=== PATIENT | male | born 1960 | race Caucasian/White ===

== ENCOUNTER 2018-05-14 11:32 | Inpatient (IN) ==
--- NOTE | 2018-05-14 11:52 | ED ---
HPI General Chief Complaint: Trauma Alert Stated Complaint: Trauma Alert Time Seen by Provider: 05/14/18 11:49 Source: patient and EMS Mode of arrival: EMS Limitations: no limitations History of Present Illness HPI narrative: 57-year-old male with history of liver cirrhosis on the transplant list, brought in by ambulance as a trauma alert. Patient declined backboard, and arrives with cervical collar in place. The patient was in a tree stand hunting when he lost his footing and fell from a height of about 10 feet onto his right side. He complains of right wrist pain and right rib pain. He denies any other injuries. Denies head injury or LOC. No neck or back pain. No abdominal pain. His right wrist and right rib pain is 3 out of 10, constant, sharp, worse with movements and inspiration. Related Data Allergies Allergy/AdvReac Type Severity Reaction Status Date / Time No Allergy Information Allergy Unverified 05/14/18 11:33 Available Review of Systems ROS: all other systems reviewed are negative PMFSH Medical History Medical History Cirrhosis (Acute) Encephalopathy, hepatic (Acute) Foot drop (Acute) Hypertension (Acute) Social History Social History Substance History: No History of Abuse Second Hand Smoke Exposure: No Smoking Status: Former smoker How Often Do You Have a Drink Containing Alcohol: Never Recent Travel in [place] within the Last 8 Weeks: No Recent Out of Country Travel within the Last 8 Weeks: No Exam Narrative Exam Narrative: GENERAL: Well-developed, well-nourished, awake, alert, GCS 15, no apparent distress. SKIN: Focused skin assessment warm/dry. No lacerations or abrasions. HEAD: Atraumatic. Normocephalic. EYES: Pupils equal and round. No scleral icterus. No injection or drainage. ENT: Mucous membranes pink and moist. Tooth #9 is missing. As per the patient there was a cap that most of popped out during his fall. NECK: Trachea midline. No JVD. No midline cervical spine step-off or tenderness. Rigid cervical collar in place. This was replaced for a [place] collar in the trauma bay. CARDIOVASCULAR: Regular rate and rhythm. Distal pulses brisk and equal bilaterally. RESPIRATORY: No accessory muscle use. Clear to auscultation. Breath sounds equal bilaterally. GASTROINTESTINAL: Abdomen soft, non-tender, nondistended. MUSCULOSKELETAL: Obvious deformity to the right distal forearm/wrist. All compartments in the right upper extremity are supple, and the right upper extremity is neurovascularly intact. There are no open wounds or lacerations. NEUROLOGICAL: Awake and alert. No obvious cranial nerve deficits. Motor grossly within normal limits. Normal speech. PSYCHIATRIC: Appropriate mood and affect; insight and judgment normal. Course Initial Documented Vital Signs Pulse Oximetry 98 05/14/18 11:37 Last Documented Vital Signs Pulse Rate 66 05/14/18 12:31 Respiratory Rate 14 05/14/18 12:31 Blood Pressure 128/75 05/14/18 12:31 Pulse Oximetry 98 05/14/18 12:31 Critical Care Time Critical Care Time: Yes Total Critical Care Time: 35 Attestation: Aggregate critical care time was 35 minutes. Time to perform other separately billable procedures was not included in the critical care time. My time did not include minutes spent treating any other patients simultaneously or on activities that did not directly contribute to the patient's treatment. The services I provided to this patient were to treat and/or prevent clinically significant deterioration that could result in: , permanent disability, worsening clinical condition, loss of limb I provided critical care services requiring my management, as noted below: Chart data review, documentation time, medication orders and management, vital sign assessments/reviewing monitor data, ordering and reviewing lab tests, ordering and interpreting/reviewing x-rays and diagnostic studies, care of the patient and discussion of the patient with the admitting physicians. Quality Measure Queries Trauma Alert - Level Two Time Surgeon Called: 11:11 Medical Decision Making MDM Narrative Medical decision making narrative: The patient arrives as a level 2 trauma alert. Upon arrival to the emergency department the trauma team was at the bedside, and ATLS protocol was followed. Bedside FAST performed by me is negative for free fluid in the abdomen and pelvis. Chest x-ray shows no obvious pneumothorax or hemothorax or signs of trauma. Right forearm x-ray shows a comminuted distal radius fracture. Volar splint was applied prior to transporting the patient to CT scan. CT of the head, neck, entire spine, thorax, and abdomen/pelvis were performed. Main traumatic injury is right first rib fracture with subcutaneous air without pneumothorax with some pulmonary edema/contusion. There are no intra-abdominal traumatic injuries. No vertebral injuries. No intracranial traumatic injuries. The patient was made aware of all findings. His O2 saturation is 98% on room air. He is not in any respiratory distress. He has declined pain medication because he is afraid of how will interact with his liver. I discussed the case with orthopedic RAFFAELE Isaias who is covering with orthopedist Dr. Montague. They will see the patient in consultation. They would like the patient to remain n.p.o. until they evaluate him as he may taken to the OR later today for ORIF. Trauma surgeon Dr. Bansal was made aware of the patient prior to patient arrival, made aware that this would be read as a level 2 trauma. He was called after all imaging was resulted. He will admit the patient to his service. Medical Screen Exam Complete: Yes Emergency Medical Condition: Yes Lab Data Result diagrams: 05/14/18 11:36 Lab Results 05/14/18 05/14/18 05/14/18 Range/Units 11:36 11:36 11:36 WBC 17.6 H (4.0-11.0) th/mm3 RBC 4.48 L (4.50-5.90) mil/mm3 Hgb 15.6 (13.0-17.0) gm/dL POC Hgb (Calc) 16.0 (13.0-17.0) g/dL Hct 45.7 (39.0-51.0) % POC Hct 47.0 (39-51.0) % MCV 101.9 H (80.0-100.0) fL MCH 34.8 H (27.0-34.0) pg MCHC 34.1 (32.0-36.0) % RDW 13.7 (11.6-17.2) % Plt Count 220 (150-450) th/mm3 MPV 9.8 (7.0-11.0) fL Neut % (Auto) 63.5 (16.0-70.0) % Lymph % (Auto) 24.2 (9.0-44.0) % [place] % (Auto) 10.1 H (0.0-8.0) % Eos % (Auto) 1.0 (0.0-4.0) % Baso % (Auto) 1.2 (0.0-2.0) % Neut # (Auto) 11.2 H (1.8-7.7) th/mm3 Lymph # (Auto) 4.3 (1.0-4.8) th/mm3 [place] # (Auto) 1.8 H (0.0-0.9) th/mm3 Eos # (Auto) 0.2 (0.0-0.4) th/mm3 Baso # (Auto) 0.2 (0.0-0.2) th/mm3 WBC Differential . Differential Comment Auto diff final PT 11.1 (9.8-11.6) sec INR 1.1 Ratio APTT 26.0 (23.4-31.7) sec POC Sodium 141 (137-144) mmol/L POC Potassium 4.0 (3.6-5.0) mmol/L POC Chloride 100 L (102-111) mmol/L POC BUN 11 (5-21) mg/dL POC Creatinine 0.7 (0.6-1.3) mg/dL POC Glucose 113 H (68-110) mg/dL Direct Bilirubin (0.0-0.2) mg/dL AST (15-37) U/L ALT (12-78) U/L Albumin (3.4-5.0) g/dL Blood Type Blood Type Recheck Antibody Screen Antigen Identification MTS Gel Crossmatch Bld Prod Order Comment 05/14/18 05/14/18 Range/Units 11:36 11:36 WBC (4.0-11.0) th/mm3 RBC (4.50-5.90) mil/mm3 Hgb (13.0-17.0) gm/dL POC Hgb (Calc) (13.0-17.0) g/dL Hct (39.0-51.0) % POC Hct (39-51.0) % MCV (80.0-100.0) fL MCH (27.0-34.0) pg MCHC (32.0-36.0) % RDW (11.6-17.2) % Plt Count (150-450) th/mm3 MPV (7.0-11.0) fL Neut % (Auto) (16.0-70.0) % Lymph % (Auto) (9.0-44.0) % [place] % (Auto) (0.0-8.0) % Eos % (Auto) (0.0-4.0) % Baso % (Auto) (0.0-2.0) % Neut # (Auto) (1.8-7.7) th/mm3 Lymph # (Auto) (1.0-4.8) th/mm3 [place] # (Auto) (0.0-0.9) th/mm3 Eos # (Auto) (0.0-0.4) th/mm3 Baso # (Auto) (0.0-0.2) th/mm3 WBC Differential Differential Comment PT (9.8-11.6) sec INR Ratio APTT (23.4-31.7) sec POC Sodium (137-144) mmol/L POC Potassium (3.6-5.0) mmol/L POC Chloride (102-111) mmol/L POC BUN (5-21) mg/dL POC Creatinine (0.6-1.3) mg/dL POC Glucose (68-110) mg/dL Direct Bilirubin 0.3 H (0.0-0.2) mg/dL AST 48 H (15-37) U/L ALT 36 (12-78) U/L Albumin 3.5 (3.4-5.0) g/dL Blood Type O Negative Blood Type Recheck Required Antibody Screen Positive H Antigen Identification Cancelled MTS Gel Crossmatch See Detail Bld Prod Order Comment Imaging Data Radiologist's impression: Wrist X-Ray 05/14/18 00:00 CONCLUSION: Comminuted fracture of the distal radius. Abdomen/Pelvis CT 05/14/18 11:37 CONCLUSION: 1. No evidence of acute visceral injury. 2. Status post splenectomy. 3. Large oval low density fluid collection in the subcutaneous fat anterior to the left hip musculature which may represent a remote seroma. Chest CT 05/14/18 11:37 CONCLUSION: 1. Subtle nondisplaced fracture of the right lateral first rib with small amount of subcutaneous. There is no pneumothorax. 2. Mild patchy area of opacity in the right upper lobe which may represent a small area of lung contusion. Short-term follow-up CT would be recommended in 3 months to exclude a true underlying mass. 3. Cholelithiasis. Chest X-Ray 05/14/18 11:37 CONCLUSION: No acute cardiopulmonary disease. Cervical Spine CT 05/14/18 11:38 CONCLUSION: 1. Negative trauma CT Head CT 05/14/18 11:38 CONCLUSION: 1. Negative trauma head CT with no evidence of hemorrhage or fracture. 2. Mild streak and motion artifact. . Lumbar Spine CT 12/11/18 11:38 CONCLUSION: 1. Negative trauma CT with no acute fracture or malalignment. Thoracic Spine CT 05/14/18 11:38 CONCLUSION: 1. No acute fracture or malalignment in the thoracic spine. 2. Multiple subtle right rib fractures. 3. Small right effusion. Wrist X-Ray 05/14/18 11:48 CONCLUSION: Comminuted fracture of the distal radius again noted. Hand X-Ray 05/14/18 11:49 CONCLUSION: No additional fractures identified. Discharge Plan Discharge Disposition Patient Disposition: ED Admit(ED Internal Use Only) Discharge Condition Condition: Stable Discharge Order Discharge Orders: ED Use Only Admit Order (Routine); Ordered 05/14/18 Ordered By: Josh Anne Discharge Details Diagnosis: Fall from height of greater than 3 feet, Right rib fracture, Lung contusion, Closed fracture of distal end of right radius Physicians Team ED Provider: Josh Anne Status ED Status: With Doctor
--- NOTE | 2018-05-14 12:00 | XR ---
EXAM DATE: 05/14/2018 11:52 AM EST AGE/SEX: 89 years / Male INDICATIONS: Patient fell put of tree stand CLINICAL DATA: This is the patient's initial encounter. Patient reports that signs and symptoms have been present for 1 day and indicates a pain score of 6/10. MEDICAL/SURGICAL HISTORY: None. None. COMPARISON: No prior exams available for comparison. FINDINGS: A single AP view of the chest demonstrates the lungs to be symmetrically aerated without evidence of mass, infiltrate or effusion. The heart size is at the upper limits of normal with no pulmonary jatin a. Multiple overlying electrocardiogram leads are present. Osseous structures are intact. CONCLUSION: No acute cardiopulmonary disease. Electronically signed by: Norberto Boyer MD 05/14/2018 11:59 AM EST
[2018-05-14 12:01] LABS: Baso # (Auto) 0.2 th/mm3 (0.0-0.2); Baso % (Auto) 1.2 % (0.0-2.0); Eos # (Auto) 0.2 th/mm3 (0.0-0.4); Hematocrit 45.7 % (39.0-51.0); Hemoglobin 15.6 gm/dL (13.0-17.0); Lymph # (Auto) 4.3 th/mm3 (1.0-4.8); Lymph % (Auto) 24.2 % (9.0-44.0); Mean Corpuscular HGB Conc 34.1 % (32.0-36.0); Mean Corpuscular Hemoglobin 34.8 pg (27.0-34.0); Mean Corpuscular Volume 101.9 fL (80.0-100.0); Mean Platelet Volume 9.8 fL (7.0-11.0); Mono # (Auto) 1.8 th/mm3 (0.0-0.9); Mono % (Auto) 10.1 % (0.0-8.0); Neut # (Auto) 11.2 th/mm3 (1.8-7.7); Neut % (Auto) 63.5 % (16.0-70.0); Platelet Count 220 th/mm3 (150-450); Red Blood Count 4.48 mil/mm3 (4.50-5.90); Red Cell Distribution Width 13.7 % (11.6-17.2); White Blood Count 17.6 th/mm3 (4.0-11.0)
--- NOTE | 2018-05-14 12:05 | XR ---
EXAM DATE: 05/14/2018 11:54 AM EST AGE/SEX: 89 years / Male INDICATIONS: Pain and swelling in the wrist after the patient fell out of a tree stand CLINICAL DATA: This is the patient's initial encounter. Patient reports that signs and symptoms have been present for 1 day and indicates a pain score of 4/10. MEDICAL/SURGICAL HISTORY: None. None. COMPARISON: No prior exams available for comparison. FINDINGS: A single AP view of the wrist as obtained and demonstrate a mildly impacted comminuted fracture of th e distal radius with multiple fracture lines extending into the radiocarpal joint. The distal ulna ap pears intact. The carpus is intact as well. There is overlying soft tissue swelling. CONCLUSION: Comminuted fracture of the distal radius. Electronically signed by: Norberto Boyer MD 05/14/2018 12:04 PM EST
--- NOTE | 2018-05-14 12:10 | CT ---
EXAM DATE: 05/14/2018 12:06 PM EST AGE/SEX: 89 years / Male INDICATIONS: Head trauma after fall from a tree. Known wrist fracture. CLINICAL DATA: This is the patient's initial encounter. Patient reports that signs and symptoms have been present for 1 day and indicates a pain score of 7/10. MEDICAL/SURGICAL HISTORY: . Unable to obtain None. unable to obtain RADIATION DOSE: 62.91 CTDI (mGy) COMPARISON: No prior exams available for comparison. TECHNIQUE: CT of the head without contrast. Using automated exposure control and adjustment of the mA and/or kV according to patient size, radiation dose was kept as low as reasonably achievable to ob tain optimal diagnostic quality images. DICOM format image data is available electronically for revi ew and comparison. FINDINGS: There is mild streak and motion artifact. Cerebrum: The ventricles are normal for age. No evidence of midline shift, mass lesion, hemorrhage or acute infarction. No extraaxial fluid collections are seen. Posterior Fossa: The cerebellum and brainstem are intact. The 4th ventricle is midline. The cerebe llopontine angle is unremarkable. Extracranial: The visualized portion of the orbits is intact. Skull: The calvaria is intact. No evidence of skull fracture. CONCLUSION: 1. Negative trauma head CT with no evidence of hemorrhage or fracture. 2. Mild streak and motion artifact. . Electronically signed by: Norberto Boyer MD 05/14/2018 12:09 PM EST
[2018-05-14 12:11] LABS: INR 1.1 Ratio; Prothrombin Time 11.1 sec (9.8-11.6)
--- NOTE | 2018-05-14 12:25 | CT ---
EXAM DATE: 05/14/2018 12:21 PM EST AGE/SEX: 89 years / Male INDICATIONS: Neck pain after trauma. CLINICAL DATA: This is the patient's initial encounter. Patient reports that signs and symptoms have been present for 1 day and indicates a pain score of 7/10. MEDICAL/SURGICAL HISTORY: . Unable to obtain . Unable to obtain RADIATION DOSE: 23.45 CTDI (mGy) COMPARISON: No prior exams available for comparison. TECHNIQUE: Contiguous axial images were obtained using helical multirow detector technique. The vol umetric data was post-processed with multiplanar reconstruction in oblique axial, sagittal, and coron al planes. Using automated exposure control and adjustment of the mA and/or kV according to patient s ize, radiation dose was kept as low as reasonably achievable to obtain optimal diagnostic quality mayur ges. DICOM format image data is available electronically for review and comparison. FINDINGS: Vertebrae: Normal vertebral body height. Discs. Degenerative disc changes are present at the C5-6 level with disc space narrowing and hypertro phic change. Alignment: Normal. No subluxation. The axial images demonstrate that the vertebral bodies and posterior elements are intact with no evid ence of acute fracture. The prevertebral soft tissues are within normal limits. There is a disc osteo phyte complex at the C5-6 level with mass effect on the anterior thecal sac. CONCLUSION: 1. Negative trauma CT Electronically signed by: Norberto Boyer MD 05/14/2018 12:24 PM EST
--- NOTE | 2018-05-14 12:30 | CT ---
EXAM DATE: 05/14/2018 12:24 PM EST AGE/SEX: 89 years / Male INDICATIONS: TRAUMA ALERT. Fall from a tree. CLINICAL DATA: This is the patient's initial encounter. Patient reports that signs and symptoms have been present for 1 day and indicates a pain score of Nonresponsive. MEDICAL/SURGICAL HISTORY: Non-responsive. Non-responsive. ORAL CONTRAST: No oral contrast ingested. RADIATION DOSE: 23.83 CTDI (mGy) COMPARISON: No prior exams available for comparison. TECHNIQUE: Multiple contiguous axial images were obtained through the abdomen and pelvis following b olus infusion of 96 ml Omnipaque 350 (iohexol) nonionic water-soluble contrast as a single exam dos e. No oral contrast ingested. Using automated exposure control and adjustment of the mA and/or kV ac cording to patient size, radiation dose was kept as low as reasonably achievable to obtain optimal di agnostic quality images. DICOM format image data is available electronically for review and comparis on. FINDINGS: Lower Lungs: The visualized lower lungs are clear. Liver: The liver has a homogeneous density without space-occupying lesion. There is no dilation of th e biliary tree. There are 2 small high density gallstones layering dependently in the gallbladder wit h no wall thickening or inflammatory change. Spleen: Status post splenectomy with surgical clips and pili in the upper left abdomen and no spl enic tissue identified. Pancreas: Unremarkable without mass or calcification. Kidneys: Normal in size and shape. No evidence of mass or hydronephrosis. Adrenal Glands: Unremarkable. Aorta: The aorta and proximal iliac vessels are grossly unremarkable without aneurysmal dilation. Bowel/Mesentery: The bowel loops are grossly unremarkable. The cecum and sigmoid colon have a normal configuration. Abdominal Wall: Intact. Retroperitoneum: No evidence of adenopathy in the retrocrural, para-aortic, or deep pelvic regions. Bladder: Contours are smooth. Reproductive Organs: No abnormal masses or calcifications seen. Inguinal: The inguinal region is unremarkable without evidence of adenopathy. Bony Structures: Unremarkable. There is an oval low-density fluid collection in the subcutaneous fat anterior to the left hip musculature. This measures up to 8.9 x 4.7 cm and measures 22 [place] [address] its in density. CONCLUSION: 1. No evidence of acute visceral injury. 2. Status post splenectomy. 3. Large oval low density fluid collection in the subcutaneous fat anterior to the left hip musculat ure which may represent a remote seroma. Electronically signed by: Norberto Boyer MD 05/14/2018 12:29 PM EST
--- NOTE | 2018-05-14 12:35 | CT ---
EXAM DATE: 05/14/2018 12:27 PM EST AGE/SEX: 89 years / Male INDICATIONS: Chest pain after trauma. CLINICAL DATA: This is the patient's initial encounter. Patient reports that signs and symptoms have been present for 1 day and indicates a pain score of 7/10. MEDICAL/SURGICAL HISTORY: . Unable to obtain . Unable to stain RADIATION DOSE: 20.34 CTDI (mGy) COMPARISON: No prior exams available for comparison. TECHNIQUE: Multiple contiguous axial images were obtained through the chest during bolus infusion of 95 ml Omnipaque 350 (iohexol) nonionic water-soluble contrast as a cumulative dose for multiple exa ms. Images were obtained in suspended respiration using multiple row detector helical technique. U sing automated exposure control and adjustment of the mA and/or kV according to patient size, radiati on dose was kept as low as reasonably achievable to obtain optimal diagnostic quality images. DICOM format image data is available electronically for review and comparison. FINDINGS: Lungs: The lungs are symmetrically aerated. There is a small patchy opacity in the right upper lobe seen on axial images numbers [id number] and. This measures up to approximately 1.3 cm in greatest diameter. There is no pneumothorax.. Mediastinum: There is good visualization of the great vessels of the middle mediastinum. No evidenc e of mediastinal or hilar adenopathy/mass. Pleurae: No evidence of focal thickening or pleural effusion. Axillae: Unremarkable. Bony Structures: As a subtle nondisplaced fracture right lateral first rib with small amount of luciano cent subcutaneous. Miscellaneous: The examination was extended to include the upper abdomen, and both adrenal glands ar e normal in size and configuration. 2 tiny calcified gallstones are noted layering the gallbladder. CONCLUSION: 1. Subtle nondisplaced fracture of the right lateral first rib with small amount of subcutaneous. Th ere is no pneumothorax. 2. Mild patchy area of opacity in the right upper lobe which may represent a small area of lung con tusion. Short-term follow-up CT would be recommended in 3 months to exclude a true underlying mass. 3. Cholelithiasis. Electronically signed by: Norberto Boyer MD 05/14/2018 12:33 PM EST
--- NOTE | 2018-05-14 12:50 | CT ---
EXAM DATE: 05/14/2018 12:41 PM EST AGE/SEX: 89 years / Male INDICATIONS: TRAUMA ALERT. Fall from a tree. CLINICAL DATA: This is the patient's initial encounter. Patient reports that signs and symptoms have been present for 1 day and indicates a pain score of Nonresponsive. MEDICAL/SURGICAL HISTORY: Non-responsive. Non-responsive. RADIATION DOSE: 0 CTDI (mGy) ; Reconstructed from previous dataset, no dose [place] [facility] [place], 05/14/2018. . TECHNIQUE: Contiguous axial images were acquired with a multirow detector CT scanner after intraveno us administration of 96 ml Omnipaque 350 (iohexol) nonionic water-soluble contrast as a single exam dose. Multiplanar reconstructions in the sagittal and coronal plane were also performed. Using autom ated exposure control and adjustment of the mA and/or kV according to patient size, radiation dose wa s kept as low as reasonably achievable to obtain optimal diagnostic quality images. DICOM format mayur data is available electronically for review and comparison. FINDINGS: Study is degraded by mild motion and streak artifact. Vertebrae: Normal vertebral body height. Discs: Mild degenerative disc changes present at the L5-S1 level with disc space narrowing and hypert rophic changes. Alignment: Normal. No subluxation. Post Contrast: No abnormal areas of enhancement are seen in the cord, dural or paraspinal regions. The axial images demonstrate that the vertebral bodies and posterior elements are intact with no evid ence of fracture. The paravertebral soft tissues appear unremarkable. CONCLUSION: 1. Negative trauma CT with no acute fracture or malalignment. Electronically signed by: Norberto Boyer MD 05/14/2018 12:48 PM EST
--- NOTE | 2018-05-14 13:04 | CT ---
EXAM DATE: 05/14/2018 12:48 PM EST AGE/SEX: 89 years / Male INDICATIONS: TRAUMA ALERT. Fall from a tree. CLINICAL DATA: This is the patient's initial encounter. Patient reports that signs and symptoms have been present for 1 day and indicates a pain score of Nonresponsive. MEDICAL/SURGICAL HISTORY: Non-responsive. Non-responsive. RADIATION DOSE: 0 CTDI (mGy) ; Reconstructed from previous dataset, no dose COMPARISON: [facility] – [place], [place] CHEST W CONTRAST, 05/14/2018. . TECHNIQUE: Contiguous axial images were acquired using a multirow detector CT scanner after intraven ous administration of 96 ml Omnipaque 350 (iohexol) nonionic water-soluble contrast as a single exam dose. Multiplanar reconstruction in the sagittal and coronal planes was performed. Using automate d exposure control and adjustment of the mA and/or kV according to patient size, radiation dose was k ept as low as reasonably achievable to obtain optimal diagnostic quality images. DICOM format image data is available electronically for review and comparison. FINDINGS: Vertebrae: Normal vertebral body height. There is a mild scoliosis. Alignment: Normal. No subluxation. Post Contrast: No abnormal areas of enhancement are seen in the cord, dural or paraspinal regions. 2 small calcified gallstones are noted layering in the gallbladder. The known right lateral rib fractu re is again visualized. The axial images demonstrate that the vertebral bodies and posterior elements are intact. Multiple ri ght-sided rib fractures are noted including the right anterior first rib. There is a questionable fra cture involving the posterior first rib. There is a nondisplaced fracture involving the posterior rig ht third, fourth and seventh ribs. There is a small right effusion. CONCLUSION: 1. No acute fracture or malalignment in the thoracic spine. 2. Multiple subtle right rib fractures. 3. Small right effusion. Electronically signed by: Norberto Boyer MD 05/14/2018 1:03 PM EST
--- NOTE | 2018-05-14 13:48 | XR ---
EXAM DATE: 05/14/2018 1:24 PM EST AGE/SEX: 89 years / Male INDICATIONS: Trauma alert, fall. CLINICAL DATA: This is the patient's initial encounter. Patient reports that signs and symptoms have been present for 1 day and indicates a pain score of 10/10. MEDICAL/SURGICAL HISTORY: None. None. COMPARISON: [facility] [place], WRIST RIGHT 1V, 05/14/2018. . FINDINGS: Multiple views of the right wrist were obtained and again demonstrate the mildly impacted comminuted fracture of the distal radius. On the lateral examination there is mild volar angulation of the dista l main radial fracture fragment. The ulnar styloid appears intact. There is overlying soft tissue swe lling. The carpus appears intact. CONCLUSION: Comminuted fracture of the distal radius again noted. Electronically signed by: Norberto Boyer MD 05/14/2018 1:46 PM EST
--- NOTE | 2018-05-14 13:49 | XR ---
EXAM DATE: 05/14/2018 1:27 PM EST AGE/SEX: 89 years / Male INDICATIONS: Trauma alert, fall. CLINICAL DATA: This is the patient's initial encounter. Patient reports that signs and symptoms have been present for 1 day and indicates a pain score of 10/10. MEDICAL/SURGICAL HISTORY: None. None. COMPARISON: [facility] [place], WRIST COMPLETE RIGHT MIN 3V, 05/14/2018. . FINDINGS: Multiple views the right hand were obtained and again demonstrate the known fracture deformity of the distal radius. The phalanges and metacarpals are intact in appearance with no evidence of fracture. Soft tissue swelling is noted over the dorsum of the hand and radius. CONCLUSION: No additional fractures identified. Electronically signed by: Norberto Boyer MD 05/14/2018 1:47 PM EST
[2018-05-14 13:51] LABS: Albumin 3.5 g/dL (3.4-5.0)
[2018-05-14 13:53] LABS: Total Protein 7.1 g/dL (6.4-8.2)
[2018-05-14] MEDS ORDERED: HYDROmorphone PF Inj 1 MG/ML Ampul IV.PUSH PRN (14:43)
[2018-05-14] MEDS ORDERED: Pantoprazole Inj 40 MG Vial IV.PUSH SCH (15:00)
[2018-05-14] MEDS: Sod Chloride 0.9% Inj 1,000 ML IV.CONT SCH (16:25)
--- NOTE | 2018-05-14 17:50 | P.CONOP ---
[facility] Orthopedics Consult Note - [facility] Consult date: 05/14/18 Chief complaint: Fall from height, right rib fracture, pulmonary Narrative: AKA: Jimbo Rebollar This patient is 57-year-old man who has a history of liver cirrhosis who is on a transplant list who came in as a trauma alert after having a fall from a tree stand. He lost his footing and fell about 10 feet onto his right side. The patient was admitted to the hospital with a rib fracture, lung contusion and comminuted distal radius fracture. The patient was splinted with the ER physician did not do a closed reduction. The patient denies having previous problems with the wrist in the past. He describes pain about the wrist which is improved with immobilization. He does not have any numbness or tingling associated with the fingers. He denies having previous problems with the wrist in the past. The patient denies any loss of consciousness. He denies cervical spine pain. Past medical history is significant as above. His surgical history is positive for previous ORIF of the foot. Family history is noncontributory. Review of Systems All other systems reviewed negative except as stated in [facility] PMFSH - History History Provided By: Patient - Medical History Medical History: Medical History (Last Updated 05/14/18 @ 12:36 by Lise Salguero RN) Cirrhosis Encephalopathy, hepatic Foot drop Hypertension - Tobacco History Second Hand Smoke Exposure: No Tobacco Use In Past 30 Days: Yes (chews tobacco) Smoking Status: Former smoker Tobacco Type: Smokeless Tobacco - Alcohol History How Often Do You Have a Drink Containing Alcohol: Never - Substance Use History Substance History: Past History - Travel History Recent Travel in the [place] Within the Last 8 Weeks: No Recent Travel Out of the Country Within the Last 8 Weeks: No - Immunization History Tetanus Immunization: <5 Years Hx Influenza Vaccine This Season: No Medications and Allergies Active Medications: Active Medications Albuterol (Duoneb Neb (Prn)) 1 ampul NEB Q2HR NEB PRN PRN Reason: SHORTNESS OF BREATH Bacitracin (Baciguent Oint) 1 applicatio TOPICAL BID [facility] Enalaprilat (Vasotec Inj) 1.25 mg IV.PUSH Q8H PRN PRN Reason: Blood pressure 180/95 Hydromorphone HCl (Dilaudid Pf Inj) 1 mg IV.PUSH Q3H PRN PRN Reason: Break through pain Sodium Chloride (Ns Inj) 1,000 mls @ 100 mls/hr IV.CONT .Q10H [facility] Last Admin: 05/14/18 16:25 Dose: 100 mls/hr Acetaminophen (Ofirmev Inj) 1,000 mg in 100 mls @ 400 mls/hr IV.SIG Q6H [facility] Stop: 05/15/18 10:14 Last Admin: 05/14/18 16:40 Dose: Not Given Lactulose (Lactulose Liq) 30 ml PO DAILY PRN PRN Reason: CONSTIPATION Lidocaine HCl (Lidoderm 5% Patch.12 Hr) 1 patch T-DERMAL DAILY [facility] Ondansetron HCl (Zofran Inj) 4 mg IV.PUSH Q6H PRN PRN Reason: NAUSEA OR VOMITING Oxycodone HCl (Roxicodone) 5 mg PO Q4H PRN PRN Reason: Pain 1-5 Oxycodone HCl (Roxicodone) 10 mg PO Q4H PRN PRN Reason: Pain 6-10 Pantoprazole Sodium (Protonix Inj) 40 mg IV.PUSH Q24H [facility] Last Admin: 05/14/18 16:24 Dose: 40 mg Patch Removal (Remove Old Patch) 1 each T-DERMAL HS [facility] Senna/Docusate Sodium (Lian-Colace) 1 tab PO BID [facility] Sodium Chloride (Ns Flush) 2 ml IV.FLUSH UNSCH PRN PRN Reason: FLUSH AFTER USING IV ACCESS Allergies Allergy/AdvReac Type Severity Reaction Status Date / Time No Known Allergies Allergy Verified 05/14/18 16:21 Home Medications Medication Instructions Recorded Confirmed Type albuterol sulfate 2 puff INHALATION Q4-6H PRN 05/14/18 05/14/18 History aspirin 81 mg PO DAILY 05/14/18 05/14/18 History bupropion HCl 150 mg DAILY 05/14/18 05/14/18 History carvedilol 6.25 mg PO BID 05/14/18 05/14/18 History clonidine HCl 0.1 mg PO TID 05/14/18 05/14/18 History escitalopram oxalate [Lexapro] 10 mg PO DAILY 05/14/18 05/14/18 History ferrous sulfate 325 mg PO DAILY 05/14/18 05/14/18 History folic acid 1 mg PO DAILY 05/14/18 05/14/18 History furosemide 20 mg PO DAILY 05/14/18 05/14/18 History lactulose 1 g PO QID 05/14/18 05/14/18 History lisinopril 20 mg PO DAILY 05/14/18 05/14/18 History magnesium 400 mg PO DAILY 05/14/18 05/14/18 History pantoprazole 40 mg PO DAILY 05/14/18 05/14/18 History spironolactone 50 mg PO DAILY 05/14/18 05/14/18 History tamsulosin 0.4 mg PO DAILY 05/14/18 05/14/18 History thiamine HCl (vitamin B1) 250 mg PO DAILY 05/14/18 05/14/18 History zinc sulfate 220 mg PO DAILY 05/14/18 05/14/18 History Exam Vital signs: Vital Signs 05/14/18 11:37 05/14/18 11:44 05/14/18 12:31 Temperature Pulse Rate 66 Respiratory Rate 14 Blood Pressure 128/75 Pulse Oximetry 97 96 98 05/14/18 15:40 05/14/18 17:23 Temperature 100.0 F H Pulse Rate 72 76 Respiratory Rate 20 18 Blood Pressure 161/70 H 158/71 H Pulse Oximetry 100 96 Narrative: GENERAL: The patient is awake, alert and oriented x3. The patient is no significant distress. The patient is obese. PSYCHIATRIC: Normal affect, insight, and judgment. HEENT: Head is atraumatic. Oropharynx is moist. Extraocular muscles are intact. NECK: Non-tender and supple. LUNGS: No audible wheezing. He has normal inspiratory effort with no signs of dyspnea HEART: Regular rate and rhythm. ABDOMEN: Soft, nontender, and nondistended. BACK: No CVA tenderness. EXTREMITIES/SKIN/NEURO/VASCULAR: The right upper extremity is currently splinted. There is no bloody drainage on the splint. He can move the fingers well. There is normal sensation distally about the fingertips. The left upper extremity has good active range of motion. The bilateral lower extremities have no tenderness and good active motion of the toes. Results - Labs Result Diagrams: 05/14/18 11:36 Labs: Laboratory Results - last 24 hr 05/14/18 05/14/18 05/14/18 11:36 11:36 11:36 WBC 17.6 H RBC 4.48 L Hgb 15.6 POC Hgb (Calc) 16.0 Hct 45.7 POC Hct 47.0 MCV 101.9 H MCH 34.8 H MCHC 34.1 RDW 13.7 Plt Count 220 MPV 9.8 Neut % (Auto) 63.5 Lymph % (Auto) 24.2 [place] % (Auto) 10.1 H Eos % (Auto) 1.0 Baso % (Auto) 1.2 Neut # (Auto) 11.2 H Lymph # (Auto) 4.3 [place] # (Auto) 1.8 H Eos # (Auto) 0.2 Baso # (Auto) 0.2 WBC Differential . Differential Comment Auto diff final PT 11.1 INR 1.1 APTT 26.0 POC Sodium 141 POC Potassium 4.0 POC Chloride 100 L POC BUN 11 POC Creatinine 0.7 POC Glucose 113 H Total Bilirubin Direct Bilirubin Indirect Bilirubin AST ALT Alkaline Phosphatase Total Protein Albumin Blood Type Blood Type Recheck Antibody Screen Antibody Identification Antigen Identification MTS Gel Crossmatch Bld Prod Order Comment 05/14/18 05/14/18 05/14/18 11:36 11:36 12:36 WBC RBC Hgb POC Hgb (Calc) Hct POC Hct MCV MCH MCHC RDW Plt Count MPV Neut % (Auto) Lymph % (Auto) [place] % (Auto) Eos % (Auto) Baso % (Auto) Neut # (Auto) Lymph # (Auto) [place] # (Auto) Eos # (Auto) Baso # (Auto) WBC Differential Differential Comment PT INR APTT POC Sodium POC Potassium POC Chloride POC BUN POC Creatinine POC Glucose Total Bilirubin 1.2 H Direct Bilirubin 0.3 H Indirect Bilirubin 0.9 H AST 48 H ALT 36 Alkaline Phosphatase 73 Total Protein 7.1 Albumin 3.5 Blood Type O Negative Blood Type Recheck Required Antibody Screen Positive H Antibody Identification Anti-D Antigen Identification Cancelled MTS Gel Crossmatch See Detail Bld Prod Order Comment - Diagnostic results Imaging: Impressions Wrist X-Ray 05/14/18 00:00 CONCLUSION: Comminuted fracture of the distal radius. I have reviewed the images for this radiology study. I agree with the interpretation given by the radiologist. Abdomen/Pelvis CT 05/14/18 11:37 CONCLUSION: 1. No evidence of acute visceral injury. 2. Status post splenectomy. 3. Large oval low density fluid collection in the subcutaneous fat anterior to the left hip musculature which may represent a remote seroma. Chest CT 05/14/18 11:37 CONCLUSION: 1. Subtle nondisplaced fracture of the right lateral first rib with small amount of subcutaneous. There is no pneumothorax. 2. Mild patchy area of opacity in the right upper lobe which may represent a small area of lung contusion. Short-term follow-up CT would be recommended in 3 months to exclude a true underlying mass. 3. Cholelithiasis. Chest X-Ray 05/14/18 11:37 CONCLUSION: No acute cardiopulmonary disease. Cervical Spine CT 05/14/18 11:38 CONCLUSION: 1. Negative trauma CT Head CT 05/14/18 11:38 CONCLUSION: 1. Negative trauma head CT with no evidence of hemorrhage or fracture. 2. Mild streak and motion artifact. . Lumbar Spine CT 05/14/18 11:38 CONCLUSION: 1. Negative trauma CT with no acute fracture or malalignment. Thoracic Spine CT 05/14/18 11:38 CONCLUSION: 1. No acute fracture or malalignment in the thoracic spine. 2. Multiple subtle right rib fractures. 3. Small right effusion. Wrist X-Ray 05/14/18 11:48 CONCLUSION: Comminuted fracture of the distal radius again noted. I have reviewed the images for this radiology study. I agree with the interpretation given by the radiologist. Hand X-Ray 05/14/18 11:49 CONCLUSION: No additional fractures identified. Assessment and Plan - Assessment and Plan 57-year-old man with end-stage liver disease on liver transplant list, status post fall out of a tree stand with right distal radius intra-articular comminuted fracture. Right first rib fracture and small lung contusion. We discussed that this is a serious condition effecting this patient's extremity. Nonoperative and operative options were discussed and reviewed. Potential consequences of both of these options were reviewed. The patient [place] out of state. And I talked in detail with both the patient and his on separate occasions concerning the analysis for whether he should consider having surgical management done here at this facility or wait until getting back home in [place]. We talked about issues surrounding length of time from the injury to having an ORIF. They are fully aware of issues with delaying surgery as he did have a delayed surgery on the foot which did not and in an excellent outcome. We did discuss that it is reasonable to consider going back home and having an orthopedic surgeon take care of it at that time as this is not necessarily an emergency that needs to get done immediately but is more of an urgent issue. The patient would like to move forward with urgent surgical management for this condition. The surgery will consist of a right distal radius open reduction and internal fixation. We will proceed with nonoperative management for the rib fracture and lung contusion. This is surgery should be considered non- elective, given that this patient presented emergently to the hospital, and the decision to proceed with surgery was derived from this presentation. Significantly delaying surgery (other than for medical clearance) has the potential to adversely effect the outcome for this patient's extremity, as discussed above but again we did give him the option of having the arm splinted and traveling back home for surgical management back home. Management of pain associated with surgery will likely require the use of parental controlled substances. The risks and benefits of surgical management have been discussed in detail. The risks of surgery include, but are not limited to, injury to nerves, blood vessels, bleeding, infection, non-healing; loss of range on motion , dysfunction or weakness of the associated joints; blood clots, pneumonia, stroke, heart attack, and . - Attending Attestation Attending Attestation: A mid level provider in my office, nurse practitioner or PA, may see this patient on a follow up basis and continue to implement the plan including: starting or adjusting medications, injections of muscle, tendons, bursa or joints, cast application, orthotic or brace application, physical therapy, further radiographic studies including X-ray, MRI, CT, ultrasound or bone scan , vascular studies, neurological studies, or other specialist consultations, and proceeding with surgical management as appropriate.
[2018-05-14] MEDS ORDERED: Senna/Docusate Sodium 8.6/50 MG Tablet PO SCH (21:00)
[2018-05-14] MEDS: Carvedilol 6.25 MG Tablet PO SCH (21:40)
[2018-05-14] MEDS ORDERED: Chlorhexidine Gluconate 2% 1 Pack (2 Cloths) TOPICAL ONE (22:34)
[2018-05-14] MEDS ORDERED: Sodium Chlor 0.9% Inj 500 ML IV.SIG SCH (23:00)
[2018-05-15] MEDS: Sod Chloride 0.9% Inj 1,000 ML IV.CONT SCH ×2 (02:26→03:52)
[2018-05-15 06:12] LABS: Baso # (Auto) 0.1 th/mm3 (0.0-0.2); Baso % (Auto) 0.7 % (0.0-2.0); Eos # (Auto) 0.1 th/mm3 (0.0-0.4); Eos % (Auto) 0.8 % (0.0-4.0); Hemoglobin 14.1 gm/dL (13.0-17.0); Lymph # (Auto) 3.8 th/mm3 (1.0-4.8); Lymph % (Auto) 30.6 % (9.0-44.0); Mean Corpuscular HGB Conc 34.3 % (32.0-36.0); Mean Corpuscular Hemoglobin 34.7 pg (27.0-34.0); Mean Corpuscular Volume 100.9 fL (80.0-100.0); Mono # (Auto) 2.4 th/mm3 (0.0-0.9); Mono % (Auto) 19.4 % (0.0-8.0); Neut # (Auto) 6.1 th/mm3 (1.8-7.7); Neut % (Auto) 48.5 % (16.0-70.0); Platelet Count 214 th/mm3 (150-450); Red Blood Count 4.06 mil/mm3 (4.50-5.90); Red Cell Distribution Width 13.5 % (11.6-17.2); White Blood Count 12.6 th/mm3 (4.0-11.0)
[2018-05-15 06:32] LABS: Anion Gap 8 meq/L (5-15); Blood Urea Nitrogen 12 mg/dL (7-18); Calcium 8.3 mg/dL (8.5-10.1); Chloride 103 meq/L (98-107); Glomerular Filtration Rate Greater Than 89 mL/min (>89); Glucose,Random 97 mg/dL (74-106); Potassium 3.9 meq/L (3.5-5.1); Sodium 139 meq/L (136-145)
[2018-05-15 07:00] LABS: Acanthocytes Occ; Howell-Jolly Bodies Present; Platelet Estimate Normal (Normal)
[2018-05-15] MEDS: Carvedilol 6.25 MG Tablet PO SCH ×2 (08:07→20:28)
[2018-05-15] MEDS: Folic Acid 1 MG Tablet PO SCH (08:13)
[2018-05-15] MEDS: Furosemide 20 MG Tablet PO SCH (08:13)
[2018-05-15] MEDS: Ferrous Sulfate 325 MG Tablet PO SCH (08:13)
[2018-05-15] MEDS: Magnesium Oxide 400 MG Tablet PO SCH (08:14)
[2018-05-15] MEDS: Lisinopril 20 MG Tablet PO SCH (08:14)
[2018-05-15] MEDS: Lidocaine 5% Patch T-DERMAL SCH (08:14)
[2018-05-15] MEDS: Escitalopram 10 MG Tablet PO SCH (08:14)
[2018-05-15] MEDS: buPROPion 75 MG Tablet PO SCH (08:15)
--- NOTE | 2018-05-15 08:41 | XR ---
EXAM DATE: 05/15/2018 8:24 AM EST AGE/SEX: 89 years / Male INDICATIONS: Pulmonary Contusion. Patient states he fell and has right rib pain and fractures. CLINICAL DATA: This is the patient's subsequent encounter. Patient reports that signs and symptoms h ave been present for 2 days and indicates a pain score of 4/10. MEDICAL/SURGICAL HISTORY: None. None. COMPARISON: [facility] [place], CHEST 1V SINGLE AP, 05/14/2018. . FINDINGS: There is subcutaneous emphysema over the right chest. This probably a small right pneumothorax eviden t. I don't see a definite rib fracture however there is some deformity of the right chest wall suspic ious of such. The heart is enlarged. Poor vascularity is normal CONCLUSION: Subcutaneous emphysema over the right chest wall Small right pneumothorax with rib fracture suspected. Electronically signed by: Jason Mulligan MD 05/15/2018 8:40 AM EST
[2018-05-15] MEDS ORDERED: THIAMINE HCL 250 MG PO SCH (09:00)
[2018-05-15] MEDS: Spironolactone 50 MG Tablet PO SCH (11:38)
--- NOTE | 2018-05-15 13:40 | P.PN ---
Subjective Interval history: OR today for right radius repair with orthopedics Denies pain, not requiring pain medication Incentive spirometry volume = 1000 Physical Exam Vital signs: Vital Signs 05/14/18 15:40 05/14/18 17:23 05/14/18 19:39 Temperature 100.0 F H 98.8 F Pulse Rate 72 76 72 Respiratory Rate 20 18 19 Blood Pressure 161/70 H 158/71 H 140/63 Pulse Oximetry 100 96 96 05/14/18 20:00 05/14/18 23:13 05/15/18 03:37 Temperature 98.6 F 98.4 F Pulse Rate 73 75 Respiratory Rate 18 20 Blood Pressure 130/60 158/70 H Pulse Oximetry 98 94 L 95 05/15/18 08:00 05/15/18 08:11 05/15/18 08:15 Temperature 97.8 F Pulse Rate 70 66 69 Respiratory Rate 18 18 Blood Pressure 168/74 H Pulse Oximetry 94 L 95 05/15/18 12:00 Temperature 98.7 F Pulse Rate 65 Respiratory Rate 17 Blood Pressure 141/70 H Pulse Oximetry 94 L Intake & Output 05/14/18 05/15/18 05/15/18 18:59 06:59 18:59 Intake Total 1480 / 1480 Output Total 450 / 450 350 / 350 Balance -450 / -450 1130 / 1130 Weight 127.8 kg Intake: IV 1000 / 1000 NS Inj 1,000 ML @ 100 mls/hr IV 1000 / 1000 .CONT .Q10H [facility] Rx#:[id number] Oral 480 / 480 Output: Urine 450 / 450 350 / 350 Stool 0 / 0 Other: # Voids 1 Date of Last Bowel Movement 05/14/18 05/15/18 Weight On Admission 127.006 kg Narrative: GENERAL: 57 year old well-nourished, well developed male lying in bed no acute distress. SKIN: Warm and dry. CARDIOVASCULAR: Regular rate and rhythm. RESPIRATORY: No accessory muscle use. Lungs clear and diminished to auscultation bilaterally. GASTROINTESTINAL: Abdomen soft, non-tender, nondistended. + BS. MUSCULOSKELETAL: Extremities without cyanosis, or edema. RUE soft splint in place. MAEW, + perfused NEUROLOGICAL: Awake and alert. Normal speech. Results - Labs CBC & Chem 7: 05/15/18 05:34 05/15/18 05:34 Laboratory Results - last 24 hr 05/14/18 05/14/18 05/14/18 11:36 11:36 12:36 WBC RBC Hgb Hct MCV MCH MCHC RDW Plt Count MPV Prelim Diff (Auto) Neut % (Auto) Lymph % (Auto) [place] % (Auto) Eos % (Auto) Baso % (Auto) Neut # (Auto) Lymph # (Auto) [place] # (Auto) Eos # (Auto) Baso # (Auto) WBC Differential Diff Scan Differential Comment Platelet Estimate Platelet Morphology [place] Bodies Acanthocytes (Spur) Sodium Potassium Chloride Carbon Dioxide Anion Gap BUN Creatinine Estimated GFR Random Glucose Calcium Total Bilirubin 1.2 H Direct Bilirubin 0.3 H Indirect Bilirubin 0.9 H AST 48 H ALT 36 Alkaline Phosphatase 73 Total Protein 7.1 Albumin 3.5 Blood Type O Negative Blood Type Recheck Required Antibody Screen Positive H Antibody Identification Anti-D Antigen Identification Cancelled MTS Gel Crossmatch See Detail Bld Prod Order Comment 05/15/18 05/15/18 05:34 05:34 WBC 12.6 H RBC 4.06 L Hgb 14.1 Hct 41.0 MCV 100.9 H MCH 34.7 H MCHC 34.3 RDW 13.5 Plt Count 214 MPV 10.0 Prelim Diff (Auto) Slide review pending Neut % (Auto) 48.5 Lymph % (Auto) 30.6 [place] % (Auto) 19.4 H Eos % (Auto) 0.8 Baso % (Auto) 0.7 Neut # (Auto) 6.1 Lymph # (Auto) 3.8 [place] # (Auto) 2.4 H Eos # (Auto) 0.1 Baso # (Auto) 0.1 WBC Differential . Diff Scan Auto diff confirmed Differential Comment . Platelet Estimate Normal Platelet Morphology Enlarged H [place] Bodies Present H Acanthocytes (Spur) Occ H Sodium 139 Potassium 3.9 Chloride 103 Carbon Dioxide 28.0 Anion Gap 8 BUN 12 Creatinine 0.73 Estimated GFR Greater than 89 Random Glucose 97 Calcium 8.3 L Total Bilirubin Direct Bilirubin Indirect Bilirubin AST ALT Alkaline Phosphatase Total Protein Albumin Blood Type Blood Type Recheck Antibody Screen Antibody Identification Antigen Identification MTS Gel Crossmatch Bld Prod Order Comment - Imaging Impressions Wrist X-Ray 05/14/18 11:48 CONCLUSION: Comminuted fracture of the distal radius again noted. Hand X-Ray 05/14/18 11:49 CONCLUSION: No additional fractures identified. Chest X-Ray 05/15/18 00:00 CONCLUSION: Subcutaneous emphysema over the right chest wall Small right pneumothorax with rib fracture suspected. Assessment and Plan - Plan IQUGMIUT: Fell from a tree standing landing on his right side. No LOC. GCS = 15. INJURIES: RIGHT rib fxs (1,3,4,7) RIGHT pulmonary contusion Small RIGHT LOPEZ RIGHT radius fx PMHx: HTN, BPH, COPD vs Asthma, depression, encephalopathy, liver cirrhosis awaiting transplant, foot drop, splenectomy RIGHT rib fxs, RIGHT pulmonary contusion, Small RIGHT LOPEZ Supportive care Pulmonary toileting CXR shows a new small right apical PTX with SQ air CXR post-op to evaluate PTX Pain control Bowel regimen OOB- PT and OT ordered RIGHT radius fx Orthopedics consulted OR today for right radius repair Pain control Bowel regimen OOB-PT and OT ordered WBS per Ortho Plan of care discussed with patient at bedside. Collaborating Trauma surgeon agrees with plan. Case management consulted to assist with discharge planning.
[2018-05-15] MEDS ORDERED: Lidocaine 1% Inj 50 ML Vial ONE (15:49)
[2018-05-15] MEDS ORDERED: Bupivacaine PF 0.25% Inj 30 ML Vial ONE (15:49)
[2018-05-15] MEDS ORDERED: ceFAZolin 1 GM Premix Inj 1 GM/50 ML PIGGYBACK IV.SIG ONE ×2 (15:49→17:05)
[2018-05-15] MEDS ORDERED: Neomycin/Polymyxin G.U. Irrigant 1 ML Ampul ONE (15:55)
[2018-05-15] MEDS ORDERED: Bupivacaine/Epinephrine PF Inj 0.5% 30 ML Vial ONE (16:37)
--- NOTE | 2018-05-15 17:32 | OTSOAPIP ---
RECEIVED OCCUPATIONAL THERAPY CONSULT. PATIENT IS OFF FLOOR FOR SURGERY. WILL REATTEMPT OCCUPATIONAL THERAPY EVALUATION NEXT DAY. JACQUELINE MAYERS OTR/L Signature on file
[2018-05-15] MEDS ORDERED: Morphine Inj 4 MG/ML Vial IV.PUSH PRN (18:02)
[2018-05-15] MEDS ORDERED: Aluminum/Magnesium/Simethacone Susp 30 ML UDC PO PRN (18:02)
[2018-05-15] MEDS ORDERED: Bisacodyl 10 MG Supp RECTAL PRN (18:02)
[2018-05-15] MEDS ORDERED: Post-op Orders (for Pharmacy) OTHER STA (18:02)
--- NOTE | 2018-05-15 18:06 | P.OP ---
Preoperative Diagnosis: Right wrist 3 part intra-articular distal radius fracture, displaced Postoperative Diagnosis: Same Date of procedure: 05/15/18 Procedure: Right wrist open reduction and internal fixation of 3 part intra-articular distal radius fracture Anesthesia: TINOA Surgeon: North Chávez MD Airset Caster: LIZZIE Muñiz The surgical procedure was assisted by my Advanced Registered Nurse Practitioner. My BROADCAST OPERATIONS MANAGER presence was necessary throughout this case for the manipulation and positioning of the surgical extremity. My BROADCAST OPERATIONS MANAGER was assisting me throughout the duration of this procedure. The skill set of an Advance Registered Nurse Practitioner was medically necessary to complete this procedure. During the surgical case, the rn neurosurgical was working at the back table and the Advance Registered Nurse Practitioner was directly assisting me. Operation and Findings: Tourniquet time: 24 minutes at 250 mmHg of pressure Estimated blood loss: 10 cc The patient received intravenous vancomycin and Ancef. After the appropriate anesthesia was administered, the patient's arm was prepped and draped in the usual sterile fashion. Local anesthetic was given, and the arm was exsanguinated. The tourniquet was raised to 250 mmHg of pressure. We made a standard incision over the volar aspect of the forearm. We then dissected through the flexor carpi radialis sub- sheath. The pronator quadratus was reflected. We now visualized the distal radius fracture very well. The fracture was anatomically reduced both visually and via fluoroscopy. We provisionally held the fracture reduced and then applied a Synthes precontoured distal radius plate into the appropriate position. We used the wide plate in order to achieve more screws distally since this with the anatomy better. This also allowed us to obtain good fixation of both the lunate fossa fragment and the radial styloid fracture better. The plate was secured to the distal radius first with the sliding screw hole. This was then followed by locking screws distally and proximally. We took final fluoroscopic imaging of the wrist. We found no intra-articular penetration of the screws. The patient had full range of motion of the wrist with no crepitus. The tourniquet was released and hemostasis was achieved. The patient had a 2+ radial pulse. We irrigated the incision thoroughly. We then closed skin with 2 -0 Vicryl followed by 3-0 nylon. The arm was dressed and a volar splint was applied. The postoperative plan is to start range of motion of the wrist at approximately 3 weeks postoperatively.
[2018-05-15] MEDS ORDERED: fentaNYL Citrate Inj 100 MCG/2 ML Ampul ONE (18:33)
--- NOTE | 2018-05-15 18:38 | XR ---
EXAM DATE: 05/15/2018 6:28 PM EST AGE/SEX: 57 years / Male INDICATIONS: Right wrist fracture status post open reduction internal fixation.. CLINICAL DATA: This is the patient's initial encounter. Patient reports that signs and symptoms have been present for 2 days and indicates a pain score of Nonresponsive. MEDICAL/SURGICAL HISTORY: Non-responsive. Non-responsive. COMPARISON: [facility], HAND COMPLETE RIGHT MIN 3V, 05/14/2018. . FINDINGS: Multiple coned-down views of the right wrist were obtained intraoperatively using a matrix camera. Th is demonstrates placement of a screw plate fixation device along the distal radius transfixing the di stal radial fracture. The fracture fragments are now in near-anatomic alignment. The distal ulna and carpus appear intact. CONCLUSION: Status post open rigid internal fixation. Electronically signed by: Norberto Boyer MD 05/15/2018 6:37 PM EST
--- NOTE | 2018-05-15 18:49 | XR ---
EXAM DATE: 05/15/2018 6:44 PM EST AGE/SEX: 57 years / Male INDICATIONS: Trauma patient status post surgery. Patient has known right rib fractures. CLINICAL DATA: This is the patient's subsequent encounter. Patient reports that signs and symptoms h ave been present for 2 days and indicates a pain score of Nonresponsive. MEDICAL/SURGICAL HISTORY: Non-responsive. Non-responsive. COMPARISON: [facility] [place], CHEST 1V SINGLE AP, 05/14/2018. . FINDINGS: A single AP portable supine view of the chest was obtained and now demonstrates subcutaneous emphysem a over the right lateral chest wall. There is a small right apical pneumothorax now identified measur ing up to approximately 1.2 cm. There are no confluent infiltrates or effusions identified. The heart size is at the upper limits of normal with no perihilar edema. There are multiple overlying electroc ardiogram leads. The known subtle rib fractures and not distinctly visualized. CONCLUSION: 1. New small right apical pneumothorax. Subcutaneous emphysema is now noted over the right lateral c hest wall. 2. The heart size appears mildly prominent with no evidence of pulmonary edema. Electronically signed by: Norberto Boyer MD 05/15/2018 6:48 PM EST
[2018-05-15] MEDS: Senna/Docusate Sodium 8.6/50 MG Tablet PO SCH (20:35)
[2018-05-15] MEDS ORDERED: Zolpidem Tartrate 5 MG Tablet PO PRN (21:00)
--- NOTE | 2018-05-15 22:20 | ECG ---
Date Performed: 05/14/2018 Time Performed: 21:53:50 PTAGE: 89 years EKG: Sinus rhythm WITH OCCASIONAL VENTRICULAR PREMATURE COMPLEXES NONSPECIFIC T-WAVE ABNORMALITY BORDERLINE ECG INTERP RETATION BASED ON A DEFAULT AGE OF 40 YEARS NO PREVIOUS TRACING DOCTOR: Monty Rea Interpretating Date/Time 05/15/2018 22:18:49
[2018-05-15] MEDS: ceFAZolin 1 GM Premix Inj 1 GM/50 ML PIGGYBACK IV.SIG SCH (22:45)
[2018-05-16] MEDS: Sod Chloride 0.9% Inj 1,000 ML IV.CONT SCH ×4 (05:06→16:10)
--- NOTE | 2018-05-16 07:35 | P.PNOP ---
Subjective Interval history: The patient is resting comfortably in bed in no acute distress. The patient states the right wrist does feel better since surgery. The patient reports he would like to return home to [place] as soon as possible. The patient has an orthopedic surgeon he would like to follow with locally in [place]. Physical Exam Vital signs: Vital Signs 05/15/18 08:00 05/15/18 08:11 05/15/18 08:15 Temperature 97.8 F Pulse Rate 70 66 69 Respiratory Rate 18 18 Blood Pressure 168/74 H Pulse Oximetry 94 L 95 05/15/18 12:00 05/15/18 18:21 05/15/18 18:30 Temperature 98.7 F 97.7 F Pulse Rate 65 67 65 Respiratory Rate 17 18 18 Blood Pressure 141/70 H 195/82 H 152/93 H Pulse Oximetry 94 L 100 96 05/15/18 18:45 05/15/18 18:51 05/15/18 18:55 Temperature 97.8 F Pulse Rate 62 62 Respiratory Rate 18 18 Blood Pressure 142/80 H 146/80 H Pulse Oximetry 97 97 98 05/15/18 19:52 05/15/18 20:01 05/15/18 22:47 Temperature 99.0 F Pulse Rate 66 66 Respiratory Rate 20 18 18 Blood Pressure 167/75 H Pulse Oximetry 95 94 L 05/15/18 23:46 05/16/18 04:47 05/16/18 06:27 Temperature 98.6 F 98.0 F Pulse Rate 61 66 74 Respiratory Rate 18 18 Blood Pressure 168/74 H 163/73 H Pulse Oximetry 94 L 93 L Intake & Output 05/15/18 05/16/18 05/16/18 18:59 06:59 18:59 Intake Total 600 / 600 2009 Output Total 1650 / 1650 Balance 590 / 590 360 / 360 Weight 127.5 kg Intake: IV 0 / 0 1050 / 1050 LR 1000 mL Inj 1,000 ML @ 80 1000 / 1000 mls/hr IV.CONT .[id number] [facility] Rx# :[id number] NS Inj 1,000 ML @ 100 mls/hr IV 0 / 0 .CONT .Q10H [facility] Rx#:[id number] Oral 960 / 960 Anesthesia Amount 600 / 600 Output: Urine 1650 / 1650 Estimated Blood Loss Other: Date of Last Bowel Movement 05/15/18 # Bowel Movements 0 Narrative: The patient's splint and dressing is clean, dry, and intact. The patient has good sensation to light touch distally. EPL, APB, AWILDA are intact. Brisk cap refill x5. Sling is intact. Results - Labs CBC & Chem 7: 05/15/18 05:34 05/15/18 05:34 - Imaging Impressions Chest X-Ray 05/15/18 00:00 CONCLUSION: Subcutaneous emphysema over the right chest wall Small right pneumothorax with rib fracture suspected. Chest X-Ray 05/15/18 00:00 CONCLUSION: 1. New small right apical pneumothorax. Subcutaneous emphysema is now noted over the right lateral chest wall. 2. The heart size appears mildly prominent with no evidence of pulmonary edema. Wrist X-Ray 05/15/18 00:00 CONCLUSION: Status post open rigid internal fixation. - Procedures Right wrist open reduction and internal fixation Assessment and Plan - Assessment and Plan POD #1: Right wrist open reduction and internal fixation 1. Maintain splint and dressing 2. Nonweightbearing with the right upper extremity. 3. Use sling as needed for support and comfort. 4. Ice as needed to the right wrist. 5. The patient is stable from an orthopedic standpoint for discharge. Case management should arrange for patient to transition back to [place] upon discharge. The patient understands the importance of orthopedic follow-up in [place] for long-term success. Patient is already established there with an orthopedic surgeon. 6. The patient will follow up with Dr. Chávez or Isaias Bernard APRN as needed.
[2018-05-16] MEDS: Magnesium Oxide 400 MG Tablet PO SCH (07:59)
[2018-05-16] MEDS: Carvedilol 6.25 MG Tablet PO SCH ×2 (08:00→20:34)
[2018-05-16] MEDS: Senna/Docusate Sodium 8.6/50 MG Tablet PO SCH ×2 (08:00→20:37)
[2018-05-16] MEDS: Furosemide 20 MG Tablet PO SCH (08:00)
[2018-05-16] MEDS: Ferrous Sulfate 325 MG Tablet PO SCH (08:00)
[2018-05-16] MEDS: Lisinopril 20 MG Tablet PO SCH (08:01)
[2018-05-16] MEDS: Escitalopram 10 MG Tablet PO SCH (08:01)
[2018-05-16] MEDS: Lidocaine 5% Patch T-DERMAL SCH (08:01)
[2018-05-16] MEDS: buPROPion 75 MG Tablet PO SCH (08:01)
[2018-05-16] MEDS: Spironolactone 50 MG Tablet PO SCH (08:01)
--- NOTE | 2018-05-16 08:41 | XR ---
EXAM DATE: 05/16/2018 8:20 AM EST AGE/SEX: 57 years / Male INDICATIONS: Follow up trauma, right chest and rib pain CLINICAL DATA: This is the patient's subsequent encounter. Patient reports that signs and symptoms h ave been present for 3 days and indicates a pain score of 6/10. MEDICAL/SURGICAL HISTORY: . right rib fractures, right wrist Splenectomy. COMPARISON: [facility], CHEST 1V SINGLE AP, 05/15/2018. . FINDINGS: Medical right pneumothorax remains evident. The lungs are otherwise clear without significant airspac e disease. There are no significant pleural effusions. Right chest subcutaneous emphysema has slightly increased. Heart and mediastinal structures are stable. CONCLUSION: Persistent very small right apical pneumothorax. Increasing right-sided subcutaneous emphysema. Otherwise stable chest without evidence of acute cardiopulmonary process. Electronically signed by: Alfredo Sánchez MD 05/16/2018 8:40 AM EST
[2018-05-16] MEDS: Folic Acid 1 MG Tablet PO SCH (09:34)
[2018-05-16] MEDS: ceFAZolin 1 GM Premix Inj 1 GM/50 ML PIGGYBACK IV.SIG SCH ×2 (11:26)
--- NOTE | 2018-05-16 13:57 | P.PN ---
Subjective Interval history: Trauma PTD: 2 Patient OOB and sitting in a recliner chair. No distress noted. at bedside, with numerous questions. Discussed plan for repeat chest x-ray in the morning, and plan for possible DC. Educated patient and regarding no airplane travel for 4-8 weeks due to PTX. Discussed returning home via car, with frequent stops with ambulation. Physical Exam Vital signs: Vital Signs 05/15/18 18:21 05/15/18 18:30 05/15/18 18:45 Temperature 97.7 F Pulse Rate 67 65 62 Respiratory Rate 18 18 18 Blood Pressure 195/82 H 152/93 H 142/80 H Pulse Oximetry 100 96 97 05/15/18 18:51 05/15/18 18:55 05/15/18 19:52 Temperature 97.8 F Pulse Rate 62 66 Respiratory Rate 18 20 Blood Pressure 146/80 H Pulse Oximetry 97 98 95 05/15/18 20:01 05/15/18 22:47 05/15/18 23:46 Temperature 99.0 F 98.6 F Pulse Rate 66 61 Respiratory Rate 18 18 18 Blood Pressure 167/75 H 168/74 H Pulse Oximetry 94 L 94 L 05/16/18 04:47 05/16/18 06:27 05/16/18 08:00 Temperature 98.0 F 97.9 F Pulse Rate 66 74 59 L Respiratory Rate 18 16 Blood Pressure 163/73 H 146/69 H Pulse Oximetry 93 L 95 05/16/18 09:01 05/16/18 11:22 05/16/18 13:30 Temperature 98 F Pulse Rate 63 62 64 Respiratory Rate 16 17 16 Blood Pressure 118/57 L Pulse Oximetry 94 L 92 L Intake & Output 05/15/18 05/16/18 05/16/18 18:59 06:59 18:59 Intake Total 600 / 600 2009 200 / 200 Output Total 1650 / 1650 Balance 590 / 590 360 / 360 200 / 200 Weight 127.5 kg Intake: IV 0 / 0 1050 / 1050 200 / 200 LR 1000 mL Inj 1,000 ML @ 80 1000 / 1000 mls/hr IV.CONT .[id number] [facility] Rx# :[id number] NS Inj 1,000 ML @ 100 mls/hr IV 0 / 0 100 / 100 .CONT .Q10H [facility] Rx#:[id number] Ancef 1 GM Premix Inj 1 gm In 100 / 100 50 ml @ 200 mls/hr IV.SIG Q6H [facility] Rx#:[id number] Oral 960 / 960 Anesthesia Amount 600 / 600 Output: Urine 1650 / 1650 Estimated Blood Loss Other: Date of Last Bowel Movement 05/15/18 05/15/18 # Bowel Movements 0 Narrative: GENERAL: This is a 57-year-old male OOB and sitting in a recliner chair. No distress noted. SKIN: Warm and dry. HEAD: Atraumatic. Normocephalic. EYES: PERRLA ENT: No nasal bleeding or discharge. Mucous membranes pink and moist. NECK: Trachea midline. No JVD. CARDIOVASCULAR: Regular rate and rhythm. RESPIRATORY: No accessory muscle use. Lungs are clear to auscultation. Breath sounds equal bilaterally. No distress or dyspnea. GASTROINTESTINAL: BS + x 4 quads. Abdomen soft, non-tender, nondistended. MUSCULOSKELETAL: Extremities without cyanosis, or edema. Right upper extremity splint in place and wrapped in Ortiz bandage. + peripheral pulses x 4 extremities. Warm with good capillary refill and sensation. MAEW. NEUROLOGICAL: Awake and alert. Normal speech and pattern. Results - Labs CBC & Chem 7: 05/15/18 05:34 05/15/18 05:34 - Imaging Impressions Chest X-Ray 05/15/18 00:00 CONCLUSION: 1. New small right apical pneumothorax. Subcutaneous emphysema is now noted over the right lateral chest wall. 2. The heart size appears mildly prominent with no evidence of pulmonary edema. Wrist X-Ray 05/15/18 00:00 CONCLUSION: Status post open rigid internal fixation. Chest X-Ray 05/16/18 07:30 CONCLUSION: Persistent very small right apical pneumothorax. Increasing right-sided subcutaneous emphysema. Otherwise stable chest without evidence of acute cardiopulmonary process. - Procedures Right wrist open reduction and internal fixation Assessment and Plan - Assessment (1) Fall from height of greater than 3 feet Code(s): W17.89XA - Other fall from one level to another, initial encounter Status: Acute (2) Right rib fracture Code(s): S22.31XA - Fracture of one rib, right side, initial encounter for closed fracture Status: Acute (3) Lung contusion Code(s): S27.329A - Contusion of lung, unspecified, initial encounter Status: Acute (4) Closed fracture of distal end of right radius Code(s): S52.501A - Unspecified fracture of the lower end of right radius, initial encounter for closed fracture Status: Acute - Plan [place]: This is a 57-year-old male who sustained a fall. He fell from a tree and landed on his right side. No LOC. GCS 15. INJURIES: RIGHT rib fxs (1,3,4,7) RIGHT pulmonary contusion Small RIGHT LOPEZ RIGHT radius fx PMHx: HTN. BPH. COPD vs Asthma. Depression. Encephalopathy. Liver cirrhosis awaiting transplant. Foot drop. Splenectomy. Procedures: 05/15: ORIF RIGHT radius fx Consults: Orthopedics. Case management. Diet: Regular diet. Tolerating po diet. Encourage good po intake with each meal. Pulmonary: Encourage good pulmonary toileting. IS at bedside and pt encouraged to use. Rationale for use explained to patient, and verbalized understanding. A.m. chest x-ray shows persistent tiny right apical PTX. Follow-up chest x-ray in the morning PAIN Management: [place] 5-10mg q4h. Morphine 2mg q3h for breakthrough pain. Lidoderm patch. Activity: OOB. PT and OT ordered. (JERE LITTLE) GI prophylaxis: Protonix 40 mg p.o. Bowel regimen: Lian-colace. MOM PRN. Lactulose BID (home med.) . Senna PRN. Bisacodyl PRN. LBM: 0 DVT prophylaxis: Mechanical VTE with SCDs. Chemical management with Lovenox SQ. DC Planning: Case management consulted for assistance with final discharge disposition. Emotional support provided to patient and family at bedside and plan of care discussed. Discussed with RN at bedside. Discussed pt condition and plan of care with collaborating trauma surgeon. Patient is hemodynamically stable and being managed on the med/surg floor. The trauma team will round each day, and evaluate plan of care on a daily basis. RIGHT rib fxs (1,3,4,7) RIGHT pulmonary contusion Small RIGHT LOPEZ O2 nasal cannula as needed Supportive care Aggressive pulmonary toileting Today's chest x-ray shows persistent tiny PTX. Increase in subcu emphysema Follow-up chest x-ray in the morning Pain management Encourage out of bed PT and OT ordered Bowel regimen Lovenox and ASA for DVT prophylaxis RIGHT radius fx Orthopedics consulted and assisting in management and care 05/15: ORIF right radius fracture Supportive care Pain management Encourage out of bed PT and OT ordered NWB RU ED Sling for comfort and support Bowel regimen SCDs and ASA for DVT prophylaxis HTN. BPH. COPD vs Asthma. Depression. Encephalopathy. Liver cirrhosis awaiting transplant. Foot drop. Splenectomy. Vital signs every 4 hours and as needed Home medications resumed Clonidine 0.1mg BID. Lasix 20mg QD. Coreg 6.25mg BID. Lisinopril 20mg QD. Aldactone 50mg QD (2) Right rib fracture Qualifiers: Encounter type: initial encounter Rib fracture type: single rib Fracture type: closed Qualified Code(s): S22.31XA - Fracture of one rib, right side, initial encounter for closed fracture (3) Lung contusion Qualifiers: Encounter type: initial encounter Laterality: right Qualified Code(s): S27.321A - Contusion of lung, unilateral, initial encounter (4) Closed fracture of distal end of right radius Qualifiers: Encounter type: initial encounter Fracture morphology: other intra-articular Qualified Code(s): S52.571A - Other intraarticular fracture of lower end of right radius, initial encounter for closed fracture
[2018-05-16] MEDS ORDERED: Influenza (Quadrivalent) Vaccine 0.5 ML Syringe IM ONE (22:00)
[2018-05-17] MEDS: Sod Chloride 0.9% Inj 1,000 ML IV.CONT SCH (04:01)
--- NOTE | 2018-05-17 07:33 | XR ---
EXAM DATE: 05/17/2018 7:14 AM EST AGE/SEX: 57 years / Male INDICATIONS: Short of breath, follow up rib fractures CLINICAL DATA: This is the patient's subsequent encounter. Patient reports that signs and symptoms h ave been present for 4 - 6 days and indicates a pain score of 7/10. MEDICAL/SURGICAL HISTORY: . right rib fracture, right wrist fracture Tonsillectomy. COMPARISON: [facility] [place], CHEST 1V SINGLE AP, 05/16/2018. . FINDINGS: Significant increase in the amount of subcutaneous emphysema now extending into the neck and across m idline. There is no residual pneumothorax. Heart remains enlarged. Rib fractures are poorly seen because of the subcutaneous emphysema. CONCLUSION: Significant increase the amount of subcutaneous emphysema. There is no pneumothorax however air is de compressing into the chest wall. Electronically signed by: Jason Mulligan MD Board Certified Radiologist 05/17/2018 7:32 AM EST
[2018-05-17] MEDS: Magnesium Oxide 400 MG Tablet PO SCH (08:21)
[2018-05-17] MEDS: Carvedilol 6.25 MG Tablet PO SCH ×2 (08:22→20:22)
[2018-05-17] MEDS: Furosemide 20 MG Tablet PO SCH (08:22)
[2018-05-17] MEDS: Escitalopram 10 MG Tablet PO SCH (08:22)
[2018-05-17] MEDS: Spironolactone 50 MG Tablet PO SCH (08:22)
[2018-05-17] MEDS: Lisinopril 20 MG Tablet PO SCH (08:23)
[2018-05-17] MEDS: Folic Acid 1 MG Tablet PO SCH (08:24)
[2018-05-17] MEDS: Ferrous Sulfate 325 MG Tablet PO SCH (08:24)
[2018-05-17] MEDS: Senna/Docusate Sodium 8.6/50 MG Tablet PO SCH ×2 (08:25→20:25)
[2018-05-17] MEDS: Lidocaine 5% Patch T-DERMAL SCH (08:25)
[2018-05-17] MEDS: buPROPion 75 MG Tablet PO SCH (08:25)
[2018-05-17] MEDS ORDERED: Influenza (Quadrivalent) Vaccine 0.5 ML Syringe IM ONE (09:00)
--- NOTE | 2018-05-17 10:32 | P.PN ---
Subjective Interval history: Trauma PTD: 3 Patient OOB in a recliner chair. No distress noted. No distress noted. No complaints offered. Patient disappointed he will require a chest tube today. "I've got to get back to [place]. 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." Physical Exam Vital signs: Vital Signs 05/16/18 11:22 05/16/18 13:30 05/16/18 15:48 Temperature 98 F Pulse Rate 62 64 58 L Respiratory Rate 17 16 Blood Pressure 118/57 L Pulse Oximetry 92 L 05/16/18 16:00 05/16/18 17:17 05/16/18 19:28 Temperature 98.4 F 98.9 F Pulse Rate 57 L 62 62 Respiratory Rate 18 18 20 Blood Pressure 120/61 125/60 Pulse Oximetry 95 92 L 05/16/18 20:00 05/16/18 23:20 05/17/18 00:00 Temperature 97.7 F 97.3 F L Pulse Rate 66 59 L 57 L Respiratory Rate 18 18 Blood Pressure 136/64 116/57 L Pulse Oximetry 96 94 L 05/17/18 03:04 05/17/18 04:50 05/17/18 07:30 Temperature 97.1 F L 98.0 F Pulse Rate 64 59 L Respiratory Rate 17 18 16 Blood Pressure 120/65 134/60 Pulse Oximetry 94 L 95 05/17/18 08:40 Temperature Pulse Rate 64 Respiratory Rate 18 Blood Pressure Pulse Oximetry Intake & Output 05/16/18 05/17/18 05/17/18 18:59 06:59 18:59 Intake Total 2500 / 2500 240 / 240 Output Total 400 / 400 1250 / 1250 Balance 2099 / 2100 -1010 / -1010 Weight 127.006 kg Intake: IV 500 / 500 NS Inj 1,000 ML @ 100 mls/hr IV 400 / 400 .CONT .Q10H [facility] Rx#:[id number] Ancef 1 GM Premix Inj 1 gm In 100 / 100 50 ml @ 200 mls/hr IV.SIG Q6H [facility] Rx#:[id number] Oral 1999 240 / 240 Output: Urine 400 / 400 1250 / 1250 Other: # Voids 4 Date of Last Bowel Movement 05/15/18 05/15/18 Narrative: GENERAL: This is a 57-year-old male OOB and sitting in a recliner chair. No distress noted. SKIN: Warm and dry. HEAD: Atraumatic. Normocephalic. EYES: PERRLA ENT: No nasal bleeding or discharge. Mucous membranes pink and moist. NECK: Trachea midline. No JVD. CARDIOVASCULAR: Regular rate and rhythm. RESPIRATORY: No accessory muscle use. Lungs are clear to auscultation. Breath sounds equal bilaterally. No distress or dyspnea. GASTROINTESTINAL: BS + x 4 quads. Abdomen soft, non-tender, nondistended. MUSCULOSKELETAL: Extremities without cyanosis, or edema. Right upper extremity splint in place and wrapped in Ortiz bandage. + peripheral pulses x 4 extremities. Warm with good capillary refill and sensation. MAEW. NEUROLOGICAL: Awake and alert. Normal speech and pattern. Results - Labs CBC & Chem 7: 05/15/18 05:34 05/15/18 05:34 Laboratory Results - last 24 hr 05/14/18 11:36 MTS Gel Crossmatch See Detail - Imaging Impressions Chest X-Ray 05/17/18 06:00 CONCLUSION: Significant increase the amount of subcutaneous emphysema. There is no pneumothorax however air is decompressing into the chest wall. - Procedures Right wrist open reduction and internal fixation Assessment and Plan - Assessment (1) Fall from height of greater than 3 feet Code(s): W17.89XA - Other fall from one level to another, initial encounter Status: Acute (2) Right rib fracture Code(s): S22.31XA - Fracture of one rib, right side, initial encounter for closed fracture Status: Acute (3) Lung contusion Code(s): S27.329A - Contusion of lung, unspecified, initial encounter Status: Acute (4) Closed fracture of distal end of right radius Code(s): S52.501A - Unspecified fracture of the lower end of right radius, initial encounter for closed fracture Status: Acute - Plan [place]: This is a 57-year-old male who sustained a fall. He fell from a tree and landed on his right side. No LOC. GCS 15. INJURIES: RIGHT rib fxs (1,3,4,7) RIGHT pulmonary contusion Small RIGHT LOPEZ RIGHT radius fx PMHx: HTN. BPH. COPD vs Asthma. Depression. Encephalopathy. Liver cirrhosis awaiting transplant. Foot drop. Splenectomy. Procedures: 05/15: ORIF RIGHT radius fx Consults: Orthopedics. Case management. Diet: N.p.o. now for pending chest tube placement in IR. Resume regular after chest tube placed. Tolerating po diet. Encourage good po intake with each meal. Pulmonary: Encourage good pulmonary toileting. IS , acapella at bedside and pt encouraged to use. Rationale for use explained to patient, and verbalized understanding. A.m. chest x-ray shows increasing subQ emphysema now extending across the chest and to the neck. Plan for right chest tube placement in IR today. PAIN Management: [place] 5-10mg q4h. Morphine 2mg q3h for breakthrough pain. Lidoderm patch. Activity: OOB. PT and OT ordered. (JERE LITTLE) GI prophylaxis: Protonix 40 mg p.o. Bowel regimen: Lian-colace. MOM PRN. Lactulose BID (home med.) . Senna PRN. Bisacodyl PRN. LBM: 0 DVT prophylaxis: Mechanical VTE with SCDs. Chemical management with Lovenox SQ. DC Planning: Case management consulted for assistance with final discharge disposition. Emotional support provided to patient and family at bedside and plan of care discussed. Discussed with RN at bedside. Discussed pt condition and plan of care with collaborating trauma surgeon. Patient is hemodynamically stable and being managed on the med/surg floor. The trauma team will round each day, and evaluate plan of care on a daily basis. RIGHT rib fxs (1,3,4,7) RIGHT pulmonary contusion Small RIGHT LOPEZ O2 nasal cannula as needed Supportive care Aggressive pulmonary toileting Today's chest x-ray shows increasing sub-Q emphysema across the chest and neck Plan for CT-guided chest tube placement in IR today. Follow-up chest x-ray in the morning Pain management Encourage out of bed PT and OT ordered Bowel regimen ASA for DVT prophylaxis RIGHT radius fx Orthopedics consulted and assisting in management and care 05/15: ORIF right radius fracture Supportive care Pain management Encourage out of bed PT and OT ordered NWMartina RU ED Sling for comfort and support Bowel regimen SCDs and ASA for DVT prophylaxis HTN. BPH. COPD vs Asthma. Depression. Encephalopathy. Liver cirrhosis awaiting transplant. Foot drop. Splenectomy. Vital signs every 4 hours and as needed Home medications resumed Clonidine 0.1mg BID. Lasix 20mg QD. Coreg 6.25mg BID. Lisinopril 20mg QD. Aldactone 50mg QD Home inhaler Liver enzymes WNL (2) Right rib fracture Qualifiers: Encounter type: initial encounter Rib fracture type: single rib Fracture type: closed Qualified Code(s): S22.31XA - Fracture of one rib, right side, initial encounter for closed fracture (3) Lung contusion Qualifiers: Encounter type: initial encounter Laterality: right Qualified Code(s): S27.321A - Contusion of lung, unilateral, initial encounter (4) Closed fracture of distal end of right radius Qualifiers: Encounter type: initial encounter Fracture morphology: other intra-articular Qualified Code(s): S52.571A - Other intraarticular fracture of lower end of right radius, initial encounter for closed fracture
[2018-05-17] MEDS ORDERED: Lidocaine PF 1% Inj 30 ML Vial ONE (11:44)
--- NOTE | 2018-05-17 13:19 | XR ---
EXAM DATE: 05/17/2018 1:11 PM EST AGE/SEX: 57 years / Male INDICATIONS: Post right anterior chest tube placement CLINICAL DATA: This is the patient's subsequent encounter. Patient reports that signs and symptoms h ave been present for 1 day and indicates a pain score of 10/10. MEDICAL/SURGICAL HISTORY: . pneumothorax, rib fracture, wrist fracture Chest tube, right. Spl enectomy. COMPARISON: [facility] – [place], CHEST 1V SINGLE AP, 05/17/2018. . FINDINGS: Small bore chest tube is in place on the right. Extensive subcutaneous emphysema remains. Heart remai ns enlarged. CONCLUSION: Small bore chest tube in good position on the right Extensive subcutaneous emphysema remains Electronically signed by: Jason Mulligan MD Board Certified Radiologist 05/17/2018 1:17 PM EST
--- NOTE | 2018-05-17 13:25 | P.RAD ---
Post Procedure Progress Note - Pre Procedure Diagnosis (1) Right rib fracture - Post Procedure Diagnosis (1) Right rib fracture - Procedure Information Procedure Date: 05/17/18 Supervising Radiologist: Mauro Ashley MD Anesthesia: Local, Conscious Sedation - Plan of Activity Patient to Unit: Nursing Unit Patient Condition: Good See PACS Report for procedural detail/treatment. Drainage Procedure Fluoroscopy right Chest Tube Non-Tunneled Placement Thai Tube Size: 10 Drainage: Pleurovac Fluid Description: Bloody
--- NOTE | 2018-05-17 16:08 | IR ---
María Elena box DATE: 05/17/2018 12:28 PM EST AGE/SEX: 57 years / Male INDICATIONS: Patient presents with right side pneumothorax in need of chest tube placement. CLINICAL DATA: This is the patient's initial encounter. Patient reports that signs and symptoms have been present for 3 days and indicates a pain score of 0/10. MEDICAL/SURGICAL HISTORY: . Hypertension, COPD, BPH, History of liver cirrhosis. . Right wrist surgery, Splenectomy COMPARISON: [facility], CHEST EXPIRATION ONLY, 05/17/2018. . FLUORO TIME (min): 1.41 IMAGE SERIES: 1 ACCESS SITE: DEVICE(S): 10 Nepali non-locking catheter 30 cm Arnoldo . . PROCEDURE: 1. Fluoroscopically guided chest tube placement. 2. Conscious sedation with continuous EKG and oximetry monitoring. The risks, benefits and alternatives to the procedure were explained and verbal and written consent w as obtained. The site was prepped in sterile fashion. Full sterile technique was used, including ca p, mask, sterile gloves and gown and a large sterile sheet. Hand hygiene and 2% chlorhexidine and/or betadine/alcohol prep was utilized per protocol for cutaneous antisepsis. The skin and subcutaneous tissues were infiltrated with local anesthetic solution. With fluoroscopic guidance the chest was punctured between the first and second interspace and the pr escribed catheter was placed in the lung apex. Wall suction was applied. Post procedure images demon strate satisfactory position of the tube. The catheter was sutured in place and a Percu-Stay was pan lied. Conscious sedation was performed with the prescribed dosages and duration as above in the presence of an independent trained radiology nurse to assist in the monitoring of the patient. EKG and oximetry remained stable throughout the procedure. The patient tolerated the procedure well and there were n o complications. The patient was sent to post anesthesia recovery in stable condition. CONCLUSION: 1. Uncomplicated chest tube placement as above. Electronically signed by: Mauro Ashley MD Board Certified Radiologist 05/17/2018 4:06 PM EST
--- NOTE | 2018-05-18 05:47 | XR ---
EXAM DATE: 05/18/2018 5:14 AM EST AGE/SEX: 57 years / Male INDICATIONS: Follow up rib fractures, short of breath. CLINICAL DATA: This is the patient's subsequent encounter. Patient reports that signs and symptoms h ave been present for 4 - 6 days and indicates a pain score of 7/10. MEDICAL/SURGICAL HISTORY: . Pneumothorax, rib fractures, wrist fracture. Splenectomy. Chest t ube, right. COMPARISON: [facility] – [place], CHEST 1V SINGLE AP, 05/17/2018. [facility] – [place], CHEST 1V SINGLE AP, 05/16/2018. . FINDINGS: There is a right-sided chest tube in place. A pneumothorax is not seen. There is fairly extensive sub cutaneous emphysema seen in the right chest and the neck and supraclavicular regions. The heart size is upper limits of normal. The lungs are grossly clear. CONCLUSION: Right chest tube without a pneumothorax. Fairly extensive subcutaneous emphysema. Electronically signed by: Napoleon Govea MD Board Certified Radiologist 05/18/2018 5:46 AM EST
[2018-05-18] MEDS: Furosemide 20 MG Tablet PO SCH (08:00)
[2018-05-18] MEDS: Magnesium Oxide 400 MG Tablet PO SCH (09:55)
[2018-05-18] MEDS: Ferrous Sulfate 325 MG Tablet PO SCH (09:56)
[2018-05-18] MEDS: Folic Acid 1 MG Tablet PO SCH (09:56)
[2018-05-18] MEDS: Escitalopram 10 MG Tablet PO SCH (09:56)
[2018-05-18] MEDS: Spironolactone 50 MG Tablet PO SCH (09:57)
[2018-05-18] MEDS: Senna/Docusate Sodium 8.6/50 MG Tablet PO SCH ×2 (09:57→21:46)
[2018-05-18] MEDS: buPROPion 75 MG Tablet PO SCH (09:58)
[2018-05-18] MEDS: Lisinopril 20 MG Tablet PO SCH (09:58)
[2018-05-18] MEDS: Lidocaine 5% Patch T-DERMAL SCH (10:01)
[2018-05-18] MEDS: Carvedilol 6.25 MG Tablet PO SCH ×2 (10:03→21:44)
--- NOTE | 2018-05-18 11:59 | P.PN ---
Subjective Interval history: Trauma PTD: 4 Patient sitting up in bed. No distress noted. No complaints offered. Patient asking how his chest x-ray/chest tube is progressing. Patient continues to ask when he will be discharged. Physical Exam Vital signs: Vital Signs 05/17/18 13:38 05/17/18 15:21 05/17/18 20:00 Temperature 99.5 F 97.9 F Pulse Rate 70 64 58 L Respiratory Rate 20 16 18 Blood Pressure 105/66 132/63 Pulse Oximetry 93 L 93 L 05/17/18 21:05 05/18/18 00:00 05/18/18 04:00 Temperature 97.8 F 97.5 F L Pulse Rate 65 61 60 Respiratory Rate 18 17 17 Blood Pressure 127/57 L 121/59 L Pulse Oximetry 94 L 93 L 05/18/18 04:07 05/18/18 08:00 05/18/18 09:43 Temperature 97.5 F L Pulse Rate 64 70 Respiratory Rate 16 19 22 Blood Pressure 159/80 H Pulse Oximetry 95 Intake & Output 05/17/18 05/18/18 05/18/18 18:59 06:59 18:59 Output Total 1200 / 1200 100 / 100 Balance -1200 / -1200 -100 / -100 Weight 124.2 kg Output: Urine 900 / 900 Wound Drainage 40 / 40 Right Lower Abdomen CODY Drain 40 / 40 Chest Tube Drainage 300 / 300 60 / 60 #1 Right Upper Mid-Axillary 300 / 300 60 / 60 Chest Other: Date of Last Bowel Movement 05/15/18 05/17/18 Narrative: GENERAL: This is a 57-year-old male OOB and sitting up in bed. No distress noted. SKIN: Warm and dry. HEAD: Atraumatic. Normocephalic. EYES: PERRLA ENT: No nasal bleeding or discharge. Mucous membranes pink and moist. NECK: Trachea midline. No JVD. CARDIOVASCULAR: Regular rate and rhythm. RESPIRATORY: No accessory muscle use. Lungs are clear to auscultation. Breath sounds equal bilaterally. No distress or dyspnea. Right anterior chest tube in place to Pleur-evac drainage system to 20 cm suction. GASTROINTESTINAL: BS + x 4 quads. Abdomen soft, non-tender, nondistended. MUSCULOSKELETAL: Extremities without cyanosis, or edema. Right upper extremity splint in place and wrapped in Ortiz bandage. + peripheral pulses x 4 extremities. Warm with good capillary refill and sensation. MAEW. NEUROLOGICAL: Awake and alert. Normal speech and pattern. Results - Labs CBC & Chem 7: 05/15/18 05:34 05/15/18 05:34 - Imaging Impressions Chest Tube Insertion 05/17/18 00:00 CONCLUSION: 1. Uncomplicated chest tube placement as above. Chest X-Ray 05/17/18 12:11 CONCLUSION: Small bore chest tube in good position on the right Extensive subcutaneous emphysema remains Chest X-Ray 05/18/18 06:00 CONCLUSION: Right chest tube without a pneumothorax. Fairly extensive subcutaneous emphysema. - Procedures Right wrist open reduction and internal fixation Assessment and Plan - Assessment (1) Fall from height of greater than 3 feet Code(s): W17.89XA - Other fall from one level to another, initial encounter Status: Acute (2) Right rib fracture Code(s): S22.31XA - Fracture of one rib, right side, initial encounter for closed fracture Status: Acute (3) Lung contusion Code(s): S27.329A - Contusion of lung, unspecified, initial encounter Status: Acute (4) Closed fracture of distal end of right radius Code(s): S52.501A - Unspecified fracture of the lower end of right radius, initial encounter for closed fracture Status: Acute - Plan [place]: This is a 57-year-old male who sustained a fall. He fell from a tree and landed on his right side. No LOC. GCS 15. INJURIES: RIGHT rib fxs (1,3,4,7) RIGHT pulmonary contusion Small RIGHT LOPEZ RIGHT radius fx PMHx: HTN. BPH. COPD vs Asthma. Depression. Encephalopathy. Liver cirrhosis awaiting transplant. Foot drop. Splenectomy. Procedures: 05/15: ORIF RIGHT radius fx 05/17: Right pigtail chest tube catheter in IR Consults: Orthopedics. Case management. Diet: N.p.o. now for pending chest tube placement in IR. Resume regular after chest tube placed. Tolerating po diet. Encourage good po intake with each meal. Pulmonary: Encourage good pulmonary toileting. IS , acapella at bedside and pt encouraged to use. Rationale for use explained to patient, and verbalized understanding. Right anterior pigtail chest tube in place to Pleur-evac drainage system to 40 cm suction. No PTX on a.m. chest x-ray, therefore decreased to 20 cm suction. Dressing CDI. A.m. chest x-ray shows subQ emphysema across the chest and to the neck =-no PTX noted. Follow-up chest x-ray in the morning PAIN Management: [place] 5-10mg q4h. Morphine 2mg q3h for breakthrough pain. Lidoderm patch. Activity: OOB. PT and OT ordered. (NWB RUE) GI prophylaxis: Protonix 40 mg p.o. Bowel regimen: Lian-colace. MOM PRN. Lactulose BID (home med.) . Senna PRN. Bisacodyl PRN. LBM: 0 DVT prophylaxis: Mechanical VTE with SCDs. Chemical management ASA per orthopedics recommendations. DC Planning: Case management consulted for assistance with final discharge disposition. Emotional support provided to patient and family at bedside and plan of care discussed. Discussed with RN at bedside. Discussed pt condition and plan of care with collaborating trauma surgeon. Patient is hemodynamically stable and being managed on the med/surg floor. The trauma team will round each day, and evaluate plan of care on a daily basis. RIGHT rib fxs (1,3,4,7) RIGHT pulmonary contusion Small RIGHT LOPEZ O2 nasal cannula as needed Supportive care Aggressive pulmonary toileting 05/17: Right pigtail chest tube catheter in IR Today's chest x-ray shows sub-Q emphysema across the chest and neck -no PTX Right anterior pigtail chest tube catheter in place to Pleur-evac drainage system to 40 cm suction -will decrease to [address] output = 360ml/24 hr Follow-up chest x-ray in the morning Pain management Encourage out of bed PT and OT ordered Bowel regimen ASA for DVT prophylaxis RIGHT radius fx Orthopedics consulted and assisting in management and care 05/15: ORIF right radius fracture Supportive care Pain management Encourage out of bed PT and OT ordered NWB RU ED Sling for comfort and support Bowel regimen SCDs and ASA for DVT prophylaxis HTN. BPH. COPD vs Asthma. Depression. Encephalopathy. Liver cirrhosis awaiting transplant. Foot drop. Splenectomy. Vital signs every 4 hours and as needed Home medications resumed Clonidine 0.1mg BID. Lasix 20mg QD. Coreg 6.25mg BID. Lisinopril 20mg QD. Aldactone 50mg QD Home inhaler Liver enzymes WNL (2) Right rib fracture Qualifiers: Encounter type: initial encounter Rib fracture type: single rib Fracture type: closed Qualified Code(s): S22.31XA - Fracture of one rib, right side, initial encounter for closed fracture (3) Lung contusion Qualifiers: Encounter type: initial encounter Laterality: right Qualified Code(s): S27.321A - Contusion of lung, unilateral, initial encounter (4) Closed fracture of distal end of right radius Qualifiers: Encounter type: initial encounter Fracture morphology: other intra-articular Qualified Code(s): S52.571A - Other intraarticular fracture of lower end of right radius, initial encounter for closed fracture
--- NOTE | 2018-05-19 06:34 | XR ---
EXAM DATE: 05/19/2018 6:14 AM EST AGE/SEX: 57 years / Male INDICATIONS: Follow up trauma, right rib fractures. No chest complaints. CLINICAL DATA: This is the patient's subsequent encounter. Patient reports that signs and symptoms h ave been present for 4 - 6 days and indicates a pain score of 0/10. MEDICAL/SURGICAL HISTORY: Hypertension. Cirrhosis. Chest tube, right. Splenectomy. Right wris t. COMPARISON: [facility] – [place], CHEST 1V SINGLE AP, 05/18/2018. . FINDINGS: There is a right-sided chest tube. A pneumothorax is not seen. There is extensive subcutaneous emphys jr. There is right lateral pleural disease. The heart size is normal. The lungs are grossly clear. CONCLUSION: Right chest tube without a pneumothorax. There is extensive subcutaneous emphysema. Pleural disease along the lateral right chest presumably associated with right rib fractures. Electronically signed by: Napoleon Govea MD Board Certified Radiologist 05/19/2018 6:33 AM EST
--- NOTE | 2018-05-19 07:51 | P.PN ---
Subjective Interval history: Trauma PTD: 5 Patient lying in bed. No distress noted. No complaints offered. Patient asked, "how is it looking?" Patient is anxious to be discharged tomorrow, as he would like to return to [place] on the train, and it leaves at 5 PM. Physical Exam Vital signs: Vital Signs 05/18/18 08:00 05/18/18 09:43 05/18/18 12:00 Temperature 97.5 F L 97.7 F Pulse Rate 70 70 69 Respiratory Rate 19 22 19 Blood Pressure 159/80 H 150/73 H Pulse Oximetry 98 93 L 05/18/18 14:49 05/18/18 16:00 05/18/18 20:00 Temperature 97.6 F 98.7 F Pulse Rate 68 62 65 Respiratory Rate 18 19 18 Blood Pressure 121/60 131/64 Pulse Oximetry 92 L 98 05/18/18 20:10 05/19/18 00:00 05/19/18 03:25 Temperature 98.3 F 98.4 F Pulse Rate 56 L 58 L Respiratory Rate 17 17 Blood Pressure 140/55 L 151/63 H Pulse Oximetry 95 96 96 Intake & Output 05/18/18 05/19/18 05/19/18 18:59 06:59 18:59 Output Total 1000 / 1000 2099 / 2099 Balance -1000 / -1000 -2099 / -2099 Weight 124.4 kg Output: Urine 1000 / 1000 2099 Other: Date of Last Bowel Movement 05/17/18 05/18/18 Narrative: GENERAL: This is a 57-year-old male sitting up in bed. No distress noted. SKIN: Warm and dry. HEAD: Atraumatic. Normocephalic. EYES: PERRLA ENT: No nasal bleeding or discharge. Mucous membranes pink and moist. NECK: Trachea midline. No JVD. CARDIOVASCULAR: Regular rate and rhythm. RESPIRATORY: No accessory muscle use. Lungs are clear to auscultation. Breath sounds equal bilaterally. No distress or dyspnea. Right anterior chest tube in place to Pleur-evac drainage system to 20 cm suction. GASTROINTESTINAL: BS + x 4 quads. Abdomen soft, non-tender, nondistended. MUSCULOSKELETAL: Extremities without cyanosis, or edema. Right upper extremity splint in place and wrapped in Ortiz bandage. + peripheral pulses x 4 extremities. Warm with good capillary refill and sensation. MAEW. NEUROLOGICAL: Awake and alert. Normal speech and pattern. Results - Labs CBC & Chem 7: 05/15/18 05:34 05/15/18 05:34 - Imaging Impressions Chest X-Ray 05/19/18 06:00 CONCLUSION: Right chest tube without a pneumothorax. There is extensive subcutaneous emphysema. Pleural disease along the lateral right chest presumably associated with right rib fractures. - Procedures Right wrist open reduction and internal fixation Assessment and Plan - Assessment (1) Fall from height of greater than 3 feet Code(s): W17.89XA - Other fall from one level to another, initial encounter Status: Acute (2) Right rib fracture Code(s): S22.31XA - Fracture of one rib, right side, initial encounter for closed fracture Status: Acute (3) Lung contusion Code(s): S27.329A - Contusion of lung, unspecified, initial encounter Status: Acute (4) Closed fracture of distal end of right radius Code(s): S52.501A - Unspecified fracture of the lower end of right radius, initial encounter for closed fracture Status: Acute - Plan [place]: This is a 57-year-old male who sustained a fall. He fell from a tree and landed on his right side. No LOC. GCS 15. INJURIES: RIGHT rib fxs (1,3,4,7) RIGHT pulmonary contusion Small RIGHT LOPEZ RIGHT radius fx PMHx: HTN. BPH. COPD vs Asthma. Depression. Encephalopathy. Liver cirrhosis awaiting transplant. Foot drop. Splenectomy. Procedures: 05/15: ORIF RIGHT radius fx 05/17: Right pigtail chest tube catheter in IR Consults: Orthopedics. Case management. Diet: N.p.o. now for pending chest tube placement in IR. Resume regular after chest tube placed. Tolerating po diet. Encourage good po intake with each meal. Pulmonary: Encourage good pulmonary toileting. IS , acapella at bedside and pt encouraged to use. Rationale for use explained to patient, and verbalized understanding. Right anterior pigtail chest tube in place to Pleur-evac drainage system to 20 cm suction. No PTX on a.m. chest x-ray. Dressing CDI. This A.m. chest x-ray shows persistent subQ emphysema across the chest and to the neck, however, no PTX noted. Follow-up chest x-ray in the morning. If chest x-ray tomorrow morning remains stable, plan for removal of chest tube at bedside. PAIN Management: [place] 5-10mg q4h. Morphine 2mg q3h for breakthrough pain. Lidoderm patch. Activity: OOB. PT and OT ordered. (NWB RUE) GI prophylaxis: Protonix 40 mg p.o. Bowel regimen: Lian-colace. MOM PRN. Lactulose BID (home med.) . Senna PRN. Bisacodyl PRN. LBM: 05/18. DVT prophylaxis: Mechanical VTE with SCDs. Chemical management ASA per orthopedics recommendations. DC Planning: Case management consulted for assistance with final discharge disposition. Emotional support provided to patient and family at bedside and plan of care discussed. Discussed with RN at bedside. Discussed pt condition and plan of care with collaborating trauma surgeon. Patient is hemodynamically stable and being managed on the med/surg floor. The trauma team will round each day, and evaluate plan of care on a daily basis. RIGHT rib fxs (1,3,4,7) RIGHT pulmonary contusion Small RIGHT LOPEZ O2 nasal cannula as needed Supportive care Aggressive pulmonary toileting 05/17: Right pigtail chest tube catheter in IR Today's chest x-ray shows persistent sub-Q emphysema across the chest and neck - however no PTX Right anterior pigtail chest tube catheter in place to Pleur-evac drainage system to 20 cm suction. We will decreased to waterseal CT output = 0 ml/24 hr Follow-up chest x-ray in the morning -if stable, plan for removal of chest tube Pain management Encourage out of bed PT and OT ordered Bowel regimen ASA for DVT prophylaxis RIGHT radius fx Orthopedics consulted and assisting in management and care 05/15: ORIF right radius fracture Supportive care Pain management Encourage out of bed PT and OT ordered NWB RU ED Sling for comfort and support Bowel regimen SCDs and ASA for DVT prophylaxis HTN. BPH. COPD vs Asthma. Depression. Encephalopathy. Liver cirrhosis awaiting transplant. Foot drop. Splenectomy. Vital signs every 4 hours and as needed Home medications resumed Clonidine 0.1mg BID. Lasix 20mg QD. Coreg 6.25mg BID. Lisinopril 20mg QD. Aldactone 50mg QD Home inhaler Liver enzymes WNL (2) Right rib fracture Qualifiers: Encounter type: initial encounter Rib fracture type: single rib Fracture type: closed Qualified Code(s): S22.31XA - Fracture of one rib, right side, initial encounter for closed fracture (3) Lung contusion Qualifiers: Encounter type: initial encounter Laterality: right Qualified Code(s): S27.321A - Contusion of lung, unilateral, initial encounter (4) Closed fracture of distal end of right radius Qualifiers: Encounter type: initial encounter Fracture morphology: other intra-articular Qualified Code(s): S52.571A - Other intraarticular fracture of lower end of right radius, initial encounter for closed fracture
[2018-05-19] MEDS: Furosemide 20 MG Tablet PO SCH (10:03)
[2018-05-19] MEDS: buPROPion 75 MG Tablet PO SCH (10:03)
[2018-05-19] MEDS: Escitalopram 10 MG Tablet PO SCH (10:04)
[2018-05-19] MEDS: Ferrous Sulfate 325 MG Tablet PO SCH (10:04)
[2018-05-19] MEDS: Carvedilol 6.25 MG Tablet PO SCH ×2 (10:04→20:58)
[2018-05-19] MEDS: Senna/Docusate Sodium 8.6/50 MG Tablet PO SCH ×2 (10:04→20:59)
[2018-05-19] MEDS: Lisinopril 20 MG Tablet PO SCH (10:04)
[2018-05-19] MEDS: Spironolactone 50 MG Tablet PO SCH (10:05)
[2018-05-19] MEDS: Folic Acid 1 MG Tablet PO SCH (10:05)
[2018-05-19] MEDS: Magnesium Oxide 400 MG Tablet PO SCH (10:05)
[2018-05-19] MEDS: Lidocaine 5% Patch T-DERMAL SCH (10:05)
--- NOTE | 2018-05-20 07:10 | XR ---
EXAM DATE: 05/20/2018 6:52 AM EST AGE/SEX: 57 years / Male INDICATIONS: Follow up trauma, pain right chest, evaluate chest tube CLINICAL DATA: This is the patient's subsequent encounter. Patient reports that signs and symptoms h ave been present for 1 week and indicates a pain score of 2/10. MEDICAL/SURGICAL HISTORY: . right wrist and rib fractures Chest tube, right. Splenectomy. COMPARISON: [facility] – [place], CHEST 1V SINGLE AP, 05/19/2018. . FINDINGS: Small bore chest tube has been removed on the right. Persistent subjacent edema is present crossing m idline to the left. No definite pneumothorax. Moderate compensated cardiomegaly. Right upper rib frac tures. CONCLUSION: Chest tube has been removed. Extensive subcutaneous emphysema remains. Electronically signed by: Jason Mulligan MD Board Certified Radiologist 05/20/2018 7:09 AM EST
--- NOTE | 2018-05-20 08:49 | P.PN ---
Subjective Interval history: Trauma PTD: 714: Called bedside RN, Renetta, regarding a.m. chest x-ray displaying chest tube has been removed with worsening sub- Q emphysema. Inquiring if radiology has possibly removed chest tube? Renetta immediately entered patient's room. Patient is stable with no signs of distress, however chest tube is noted to be dislodged, and found out of patient and in his bed. Right chest tube site is immediately dressed with Vaseline gauze and 4 x 4 dressing and secured with Elastoplast pressure dressing. Collaborated with Dr. Bansal regarding inadvertent chest tube removal. Dr. Bansal has reviewed a.m. chest x-ray, spoken with Dr. Mulligan in radiology, and recommends reinsertion of right anterior pigtail chest tube in IR. Collaborated with Renetta, she will keep the patient n.p.o., and will hold Lovenox until after procedure. 30: Spoke with LISA Jackson. Patient is obviously upset with need for reinsertion of chest tube, and states that he has to leave today to catch a train back to [place]. Discussed with Renetta at length the ramifications of this patient leaving the hospital, and taking a 24-hour train back to [place]. Renetta is in agreement, and has reiterated this information to the patient, with possible consequences of increased respiratory distress, and even . Renetta will continue to encourage the patient to stay in the hospital for chest tube placement and further care and explained rationale. 1015: A.m. trauma rounds. Patient lying in bed. No distress noted. Patient states, "I do not have any pain." Explained to patient that this morning's chest x-ray shows increasing sub-Q emphysema. He will require a replacement chest tube for the one that came out last night. Patient is very frustrated and disappointed, as he was hoping to be discharged today -he planned on returning home to [place] train [facility] [place] at 5 PM. Patient wants to know this specifically how much longer he will have to stay. Trying to pin the physician down to a specific day and time. "So is it till Sunday, or . When am I going to get out of here?" "If this is not fixed in the next 3 days, I am going to have to sign myself out. I have to get home." Discussed with patient in depth, and at length regarding seriousness of situation and chest injury. Discussed the dangers of getting on a 24-hour train ride with a pneumothorax. Made patient aware of the possible complications that could occur while he is on the train, and ramifications including increased injury and . 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 Physical Exam Vital signs: Vital Signs 05/19/18 12:00 05/19/18 16:00 05/19/18 20:00 Temperature 97.2 F L 98.1 F 98.4 F Pulse Rate 62 58 L 61 Respiratory Rate 19 19 18 Blood Pressure 142/70 H 125/67 139/64 Pulse Oximetry 93 L 94 L 97 05/19/18 23:00 05/20/18 04:00 Temperature 97.9 F 97.2 F L Pulse Rate 57 L 59 L Respiratory Rate 16 16 Blood Pressure 121/63 151/69 H Pulse Oximetry 95 95 Intake & Output 05/19/18 05/20/18 05/20/18 18:59 06:59 18:59 Output Total 700 / 700 1775 / 1775 Balance -700 / -700 -1775 / -1775 Weight 124.2 kg Output: Urine 700 / 700 1775 / 1775 Chest Tube Drainage 0 / 0 0 / 0 #1 Right Upper Mid-Axillary 0 / 0 0 / 0 Chest Other: Date of Last Bowel Movement 05/19/18 05/19/18 # Bowel Movements 1 Narrative: GENERAL: This is a 57-year-old male sitting up in bed. No distress noted. SKIN: Warm and dry. HEAD: Atraumatic. Normocephalic. EYES: PERRLA ENT: No nasal bleeding or discharge. Mucous membranes pink and moist. NECK: Trachea midline. No JVD. CARDIOVASCULAR: Regular rate and rhythm. RESPIRATORY: No accessory muscle use. Lungs are clear to auscultation. Breath sounds equal bilaterally. No distress or dyspnea. GASTROINTESTINAL: BS + x 4 quads. Abdomen soft, non-tender, nondistended. MUSCULOSKELETAL: Extremities without cyanosis, or edema. RIGHT upper extremity splint in place and wrapped in Ortiz bandage. + peripheral pulses x 4 extremities. Warm with good capillary refill and sensation. MAEW. NEUROLOGICAL: Awake and alert. Normal speech and pattern. Results - Labs CBC & Chem 7: 05/15/18 05:34 05/15/18 05:34 - Imaging Impressions Chest X-Ray 05/20/18 06:00 CONCLUSION: Chest tube has been removed. Extensive subcutaneous emphysema remains. - Procedures Right wrist open reduction and internal fixation Assessment and Plan - Assessment (1) Fall from height of greater than 3 feet Code(s): W17.89XA - Other fall from one level to another, initial encounter Status: Acute (2) Right rib fracture Code(s): S22.31XA - Fracture of one rib, right side, initial encounter for closed fracture Status: Acute (3) Lung contusion Code(s): S27.329A - Contusion of lung, unspecified, initial encounter Status: Acute (4) Closed fracture of distal end of right radius Code(s): S52.501A - Unspecified fracture of the lower end of right radius, initial encounter for closed fracture Status: Acute - Plan MARY'S IGLOO: This is a 57-year-old male who sustained a fall. He fell from a tree and landed on his right side. No LOC. GCS 15. INJURIES: RIGHT rib fxs (1,3,4,7) RIGHT pulmonary contusion Small RIGHT LOPEZ RIGHT radius fx PMHx: HTN. BPH. COPD vs Asthma. Depression. Encephalopathy. Liver cirrhosis awaiting transplant. Foot drop. Splenectomy. Procedures: 05/15: ORIF RIGHT radius fx 05/17: Right pigtail chest tube catheter in IR 05/20: Right pigtail CT found dislodged Consults: Orthopedics. Case management. Diet: N.p.o. now for pending chest tube placement in IR. Resume regular after chest tube placed. Tolerating po diet. Encourage good po intake with each meal. Pulmonary: Encourage good pulmonary toileting. IS , acapella at bedside and pt encouraged to use. Rationale for use explained to patient, and verbalized understanding. Right anterior pigtail chest tube found dislodged and in the patient's bed this a.m. This A.m. chest x-ray shows increased subQ emphysema across the chest and to the neck, with possible PTX. Plan for a relacement CT-guided chest tube placement today in IR. PAIN Management: [place] 5-10mg q4h. Morphine 2mg q3h for breakthrough pain. Lidoderm patch. Activity: OOB. PT and OT ordered. (JERE LITTLE) GI prophylaxis: Protonix 40 mg p.o. Bowel regimen: Lian-colace. MOM PRN. Lactulose BID (home med.) . Senna PRN. Bisacodyl PRN. LBM: 05/18. DVT prophylaxis: Mechanical VTE with SCDs. Chemical management ASA per orthopedics recommendations. DC Planning: Case management consulted for assistance with final discharge disposition. Emotional support provided to patient and family at bedside and plan of care discussed. Discussed with RN at bedside. Discussed pt condition and plan of care with collaborating trauma surgeon. Patient is hemodynamically stable and being managed on the med/surg floor. The trauma team will round each day, and evaluate plan of care on a daily basis. RIGHT rib fxs (1,3,4,7) RIGHT pulmonary contusion Small RIGHT LOPEZ O2 nasal cannula as needed Supportive care Aggressive pulmonary toileting 05/17: Right pigtail chest tube catheter in IR 05/20: RIGHT CT found dislodged This a.m. chest x-ray shows increased sub-Q emphysema across the chest and neck with possible PTX Right anterior pigtail chest tube catheter found dislodged Return to IR for CT-guided pigtail chest tube placement today CT output = 0 ml/24 hr Follow-up chest x-ray in the morning Pain management Encourage out of bed PT and OT ordered Bowel regimen ASA for DVT prophylaxis RIGHT radius fx Orthopedics consulted and assisting in management and care 05/15: ORIF right radius fracture Supportive care Pain management Encourage out of bed PT and OT ordered JERE LITTLE Sling for comfort and support Bowel regimen SCDs and ASA for DVT prophylaxis HTN. BPH. COPD vs Asthma. Depression. Encephalopathy. Liver cirrhosis awaiting transplant. Foot drop. Splenectomy. Vital signs every 4 hours and as needed Home medications resumed Clonidine 0.1mg BID. Lasix 20mg QD. Coreg 6.25mg BID. Lisinopril 20mg QD. Aldactone 50mg QD Home inhaler Liver enzymes WNL (2) Right rib fracture Qualifiers: Encounter type: initial encounter Rib fracture type: single rib Fracture type: closed Qualified Code(s): S22.31XA - Fracture of one rib, right side, initial encounter for closed fracture (3) Lung contusion Qualifiers: Encounter type: initial encounter Laterality: right Qualified Code(s): S27.321A - Contusion of lung, unilateral, initial encounter (4) Closed fracture of distal end of right radius Qualifiers: Encounter type: initial encounter Fracture morphology: other intra-articular Qualified Code(s): S52.571A - Other intraarticular fracture of lower end of right radius, initial encounter for closed fracture
[2018-05-20] MEDS: Ferrous Sulfate 325 MG Tablet PO SCH (10:15)
[2018-05-20] MEDS: Escitalopram 10 MG Tablet PO SCH (10:15)
[2018-05-20] MEDS: Folic Acid 1 MG Tablet PO SCH (10:15)
[2018-05-20] MEDS: Magnesium Oxide 400 MG Tablet PO SCH (10:16)
[2018-05-20] MEDS: Furosemide 20 MG Tablet PO SCH (10:18)
[2018-05-20] MEDS: Carvedilol 6.25 MG Tablet PO SCH ×2 (10:18→22:34)
[2018-05-20] MEDS: Senna/Docusate Sodium 8.6/50 MG Tablet PO SCH ×2 (10:19→22:35)
[2018-05-20] MEDS: Lisinopril 20 MG Tablet PO SCH (10:19)
[2018-05-20] MEDS: buPROPion 75 MG Tablet PO SCH (10:19)
[2018-05-20] MEDS: Spironolactone 50 MG Tablet PO SCH (10:19)
--- NOTE | 2018-05-20 15:03 | CT ---
EXAM DATE: 05/20/2018 2:39 PM EST AGE/SEX: 57 years / Male INDICATIONS: Pneumothorax CLINICAL DATA: This is the patient's initial encounter. Patient reports that signs and symptoms have been present for 1 day and indicates a pain score of 0/10. MEDICAL/SURGICAL HISTORY: None. None. RADIATION DOSE: 9.86 CTDI (mGy) COMPARISON: [facility] [place], 05/[place]/2018. . TECHNIQUE: Multiple contiguous axial images were obtained through the chest without contrast. Image s were obtained in suspended respiration using multiple row detector helical technique. Using automa tanvir exposure control and adjustment of the mA and/or kV according to patient size, radiation dose was kept as low as reasonably achievable to obtain optimal diagnostic quality images. DICOM format imag e data is available electronically for review and comparison. FINDINGS: Lungs: The lungs are symmetrically aerated. Some atelectasis posteriorly in the right lung base. Park gs are otherwise clear. Mediastinum: There is good visualization of the great vessels of the middle mediastinum. No evidenc e of mediastinal or hilar adenopathy/mass. There is pneumomediastinum which appears to be continuous with the tissue and subcutaneous edematous changes, just below the level of the thyroid. Pleurae: Right basilar atelectatic changes. No pneumothorax. Axillae: Unremarkable. Bony Structures: Multiple right-sided lateral rib fractures including 1, 4,5,6,7and 8. Miscellaneous: Extensive subcutaneous and deep tissue emphysematous changes about the thorax. CONCLUSION: 1. Extensive subcutaneous and deep tissue emphysematous changes about the thorax with extension into the mediastinum. 2. Multiple right-sided rib fractures. 3. No pneumothorax. Electronically signed by: Isaias Nogueira MD Board Certified Radiologist 05/20/2018 3:02 PM EST
[2018-05-20] MEDS: Lidocaine 5% Patch T-DERMAL SCH (18:57)
--- NOTE | 2018-05-21 07:19 | XR ---
EXAM DATE: 05/21/2018 7:15 AM EST AGE/SEX: 57 years / Male INDICATIONS: Follow up right lung post chest tube removal, short of breath, some chest discomfort CLINICAL DATA: This is the patient's subsequent encounter. Patient reports that signs and symptoms h ave been present for 1 week and indicates a pain score of 1/10. MEDICAL/SURGICAL HISTORY: . pneumothorax, right wrist fracture . chest tube [place] [facility] [place] [facility] [place]. . FINDINGS: Portable upright AP view of the chest demonstrates a normal-sized cardiac silhouette. Lungs are mildl y underinflated. No pleural effusion, airspace consolidation, or pneumothorax is identified. Multiple right rib fractures remain visualized. There is extensive right chest wall and bilateral supraclavic ular subcutaneous emphysema similar to the prior examination. CONCLUSION: Stable chest x-ray without pneumothorax. There is unchanged right chest wall and bilateral supraclavi cular region subcutaneous emphysema. Electronically signed by: Napoleon Freeman MD Board Certified Radiologist 05/21/2018 7:18 AM EST
[2018-05-21] MEDS: Lidocaine 5% Patch T-DERMAL SCH (09:34)
[2018-05-21] MEDS: Spironolactone 50 MG Tablet PO SCH (09:35)
[2018-05-21] MEDS: Carvedilol 6.25 MG Tablet PO SCH (09:35)
[2018-05-21] MEDS: Lisinopril 20 MG Tablet PO SCH (09:35)
[2018-05-21] MEDS: Ferrous Sulfate 325 MG Tablet PO SCH (09:35)
[2018-05-21] MEDS: Escitalopram 10 MG Tablet PO SCH (09:35)
[2018-05-21] MEDS: Magnesium Oxide 400 MG Tablet PO SCH (09:36)
[2018-05-21] MEDS: Furosemide 20 MG Tablet PO SCH (09:36)
[2018-05-21] MEDS: buPROPion 75 MG Tablet PO SCH (09:36)
[2018-05-21] MEDS: Folic Acid 1 MG Tablet PO SCH (09:36)
[2018-05-21] MEDS: Senna/Docusate Sodium 8.6/50 MG Tablet PO SCH (09:37)
--- NOTE | 2018-05-21 12:29 | P.PN ---
Subjective Interval history: Trauma PTD: 7 Patient lying in bed. No distress noted. Discussed patient condition and chest injury at length with both patient and his at bedside. Patient and verbalized understanding and agree with conservative plan of care and close monitoring. Patient denies any pain. states, "he is claustrophobic. He has a tendency to pull things out when he is in the hospital." Patient concurs stating "I have extubated myself 3 times." Physical Exam Vital signs: Vital Signs 05/20/18 16:00 05/20/18 20:42 05/20/18 23:16 Temperature 97.6 F 98.2 F 98 F Pulse Rate 58 L 60 67 Respiratory Rate 18 Blood Pressure 147/74 H 138/66 Pulse Oximetry 97 93 L 94 L 05/21/18 00:30 05/21/18 03:35 05/21/18 08:00 Temperature 98.9 F 97.5 F L Pulse Rate 55 L 56 L Respiratory Rate 17 Blood Pressure 136/65 149/68 H Pulse Oximetry 96 93 L Intake & Output 05/20/18 05/21/18 05/21/18 18:59 06:59 18:59 Intake Total 480 / 480 Output Total 800 / 800 Balance -320 / -320 Intake: Oral 480 / 480 Output: Urine 800 / 800 Other: # Voids 2 Date of Last Bowel Movement 05/20/18 05/20/18 05/20/18 # Bowel Movements 1 Narrative: GENERAL: This is a 57-year-old male sitting up in bed. No distress noted. SKIN: Warm and dry. HEAD: Atraumatic. Normocephalic. EYES: PERRLA ENT: No nasal bleeding or discharge. Mucous membranes pink and moist. NECK: Trachea midline. No JVD. Subcu emphysema palpated over bilateral neck. CARDIOVASCULAR: Regular rate and rhythm. RESPIRATORY: No accessory muscle use. Lungs are clear to auscultation. Breath sounds equal bilaterally. No distress or dyspnea. Subcu emphysema palpated to right side of chest GASTROINTESTINAL: BS + x 4 quads. Abdomen soft, non-tender, nondistended. MUSCULOSKELETAL: Extremities without cyanosis, or edema. RIGHT upper extremity splint in place and wrapped in Ortiz bandage. + peripheral pulses x 4 extremities. Warm with good capillary refill and sensation. MAEW. NEUROLOGICAL: Awake and alert. Normal speech and pattern. Results - Labs CBC & Chem 7: 05/15/18 05:34 05/15/18 05:34 - Imaging Impressions Chest CT 05/20/18 00:00 CONCLUSION: 1. Extensive subcutaneous and deep tissue emphysematous changes about the thorax with extension into the mediastinum. 2. Multiple right-sided rib fractures. 3. No pneumothorax. Chest X-Ray 05/21/18 06:00 CONCLUSION: Stable chest x-ray without pneumothorax. There is unchanged right chest wall and bilateral supraclavicular region subcutaneous emphysema. - Procedures Right wrist open reduction and internal fixation Assessment and Plan - Assessment (1) Fall from height of greater than 3 feet Code(s): W17.89XA - Other fall from one level to another, initial encounter Status: Acute (2) Right rib fracture Code(s): S22.31XA - Fracture of one rib, right side, initial encounter for closed fracture Status: Acute (3) Lung contusion Code(s): S27.329A - Contusion of lung, unspecified, initial encounter Status: Acute (4) Closed fracture of distal end of right radius Code(s): S52.501A - Unspecified fracture of the lower end of right radius, initial encounter for closed fracture Status: Acute - Plan HABEMATOLEL: This is a 57-year-old male who sustained a fall. He fell from a tree and landed on his right side. No LOC. GCS 15. INJURIES: RIGHT rib fxs (1,3,4,7) RIGHT pulmonary contusion Small RIGHT LOPEZ RIGHT radius fx PMHx: HTN. BPH. COPD vs Asthma. Depression. Encephalopathy. Liver cirrhosis awaiting transplant. Foot drop. Splenectomy. Procedures: 05/15: ORIF RIGHT radius fx 05/17: Right pigtail chest tube catheter in IR 05/20: Right pigtail CT found dislodged Consults: Orthopedics. Case management. Diet: Regular diet. Tolerating po diet. Encourage good po intake with each meal. Pulmonary: Encourage good pulmonary toileting. IS , acapella at bedside and pt encouraged to use. Rationale for use explained to patient, and verbalized understanding. 05/20: CT chest -no PTX. Pneumomediastinum. Extensive right chest and neck with subcu air. Patient does not have a PTX, therefore radiologist did not replace chest tube at this time. This A.m. chest x-ray shows stable subQ emphysema across the chest and to the neck, no PTX. PAIN Management: [place] 5-10mg q4h. Morphine 2mg q3h for breakthrough pain. Lidoderm patch. Activity: OOB. PT and OT ordered. (NWB RUE) GI prophylaxis: Protonix 40 mg p.o. Bowel regimen: Lian-colace. MOM PRN. Lactulose BID (home med.) . Senna PRN. Bisacodyl PRN. LBM: 05/20. DVT prophylaxis: Mechanical VTE with SCDs. Chemical management ASA per orthopedics recommendations. DC Planning: Case management consulted for assistance with final discharge disposition. Emotional support provided to patient and family at bedside and plan of care discussed. Discussed with RN at bedside. Discussed pt condition and plan of care with collaborating trauma surgeon. Patient is hemodynamically stable and being managed on the med/surg floor. The trauma team will round each day, and evaluate plan of care on a daily basis. RIGHT rib fxs (1,3,4,7) RIGHT pulmonary contusion Small RIGHT LOPEZ O2 nasal cannula as needed Supportive care Aggressive pulmonary toileting 05/17: Right pigtail chest tube catheter in IR 05/20: RIGHT CT found dislodged 05/20: CT chest -no PTX. Pneumomediastinum. Extensive right chest and neck with subcu air. Patient does not have a PTX, therefore radiologist did not replace chest tube at this time. This A.m. chest x-ray shows stable subQ emphysema across the chest and to the neck, no PTX. Follow-up chest x-ray in the morning Pain management Encourage out of bed PT and OT ordered Bowel regimen ASA for DVT prophylaxis RIGHT radius fx Orthopedics consulted and assisting in management and care 05/15: ORIF right radius fracture Supportive care Pain management Encourage out of bed PT and OT ordered [facility] Sling for comfort and support Bowel regimen SCDs and ASA for DVT prophylaxis Follow-up with orthopedics outpatient HTN. BPH. COPD vs Asthma. Depression. Encephalopathy. Liver cirrhosis awaiting transplant. Foot drop. Splenectomy. Vital signs every 4 hours and as needed Home medications resumed Clonidine 0.1mg BID. Lasix 20mg QD. Coreg 6.25mg BID. Lisinopril 20mg QD. Aldactone 50mg QD Home inhaler Liver enzymes WNL - Attending Attestation The exam, history, and the medical decision-making described in the above note were completed with the assistance of the mid-level provider. I reviewed and agree with the findings presented. I attest that I had a [id number] encounter with the patient on the same day, and personally performed and documented my assessment and findings in the medical record. s/p Fall from height no acute events overnight vitals stable chest exam stable, SQ air stable, no SOB or airway problems cxr reviewed, slightly better last 24h, clinically stable plan for DC next 24h if remains stable (2) Right rib fracture Qualifiers: Encounter type: initial encounter Rib fracture type: single rib Fracture type: closed Qualified Code(s): S22.31XA - Fracture of one rib, right side, initial encounter for closed fracture (3) Lung contusion Qualifiers: Encounter type: initial encounter Laterality: right Qualified Code(s): S27.321A - Contusion of lung, unilateral, initial encounter (4) Closed fracture of distal end of right radius Qualifiers: Encounter type: initial encounter Fracture morphology: other intra-articular Qualified Code(s): S52.571A - Other intraarticular fracture of lower end of right radius, initial encounter for closed fracture
[2018-05-22] MEDS: Carvedilol 6.25 MG Tablet PO SCH ×2 (00:10→10:18)
[2018-05-22] MEDS: Senna/Docusate Sodium 8.6/50 MG Tablet PO SCH ×2 (00:21→10:19)
--- NOTE | 2018-05-22 09:10 | XR ---
EXAM DATE: 05/22/2018 8:36 AM EST AGE/SEX: 57 years / Male INDICATIONS: Right rib fracture. Shortness of breath. CLINICAL DATA: This is the patient's subsequent encounter. Patient reports that signs and symptoms h ave been present for 1 week and indicates a pain score of 5/10. MEDICAL/SURGICAL HISTORY: None. None. COMPARISON: [facility] – [place], CHEST 1V SINGLE AP, 05/21/2018. . FINDINGS: There is less subcutaneous emphysema on the right. There is no definite pneumothorax. Left lung is cl ear. The heart and pulmonary vascularity are normal. CONCLUSION: Interval decrease in amount of subcutaneous emphysema on the right. Electronically signed by: Jason Mulligan MD Board Certified Radiologist 05/22/2018 9:08 AM EST
[2018-05-22] MEDS: Spironolactone 50 MG Tablet PO SCH (10:16)
[2018-05-22] MEDS: Escitalopram 10 MG Tablet PO SCH (10:17)
[2018-05-22] MEDS: Lidocaine 5% Patch T-DERMAL SCH (10:17)
[2018-05-22] MEDS: Folic Acid 1 MG Tablet PO SCH (10:17)
[2018-05-22] MEDS: Magnesium Oxide 400 MG Tablet PO SCH (10:18)
[2018-05-22] MEDS: Ferrous Sulfate 325 MG Tablet PO SCH (10:18)
[2018-05-22] MEDS: Lisinopril 20 MG Tablet PO SCH (10:18)
[2018-05-22] MEDS: buPROPion 75 MG Tablet PO SCH (10:19)
[2018-05-22] MEDS: Furosemide 20 MG Tablet PO SCH (10:19)
--- NOTE | 2018-05-22 15:36 | P.DS ---
Date of admission: 05/14/18 13:57 Primary care physician: UNKNOWN Attending physician on discharge: Ubaldo Hill Anticipated date of discharge: 05/22/18 Brief History from admission: Fall. DS: Diagnosis - Discharge Diagnosis (1) Fall from height of greater than 3 feet Status: Acute (2) Right rib fracture Status: Acute (3) Lung contusion Status: Acute (4) Closed fracture of distal end of right radius Status: Acute DS: Medications - Discharge Medications Prescriptions: hydrocodone-acetaminophen [[place]] 1 - 2 tab PO Q4-6H #50 tab ibuprofen [Motrin IB] 600 mg PO Q8H PRN 5 Days tab PRN Reason: Pain DS: Summary Hospital Course: [facility] [facility]: This is a 57-year-old male who sustained a fall. He fell from a tree and landed on his right side. No LOC. GCS 15. INJURIES: RIGHT rib fxs (1,3,4,7) RIGHT pulmonary contusion Small RIGHT LOPEZ RIGHT radius fx PMHx: HTN. BPH. COPD vs Asthma. Depression. Encephalopathy. Liver cirrhosis awaiting transplant. Foot drop. Splenectomy. Procedures: 05/15: ORIF RIGHT radius fx 05/17: Right pigtail chest tube catheter in IR 05/20: Right pigtail CT found dislodged Consults: Orthopedics. Case management. The patient would like to go home. The patient is now tolerating a po diet. Eating and drinking well. Pain is being managed well with PO pain medications, and patient is being a provided with a script for pain meds upon discharge -ordered by orthopedics. [This patient will be prescribed narcotic pain medications due to his traumatic injuries. The patient has a normal physiological response to severe traumatic injuries and surgery. He will need acute pain management with prescribed narcotic treatment.] (NO driving while taking narcotic pain medication enforced to patient.) Pt is having regular bowel movements, and have recommended to patient to continue with stool softeners while taking narcotic pain medications to prevent constipation. Pt has been participating in PT and OT while admitted at [facility] and has been ambulating with their assistance and independently. No home PT needs All follow up appointments have been provided and discussed with the patient. It is recommended that the patient keeps all his follow up appointments for continued recovery. Patient and state he will follow up with his physicians at [facility]. Patient's condition and plan of care discussed with collaborating trauma surgeon. He is agreeable to plan for discharge today. Therefore, the patient is stable to be safely discharged home from a trauma surgery standpoint. Thank you for allowing us to participate in his care. We wish Jimbo the best in his recovery. RIGHT rib fxs (1,3,4,7) RIGHT pulmonary contusion Small RIGHT LOPEZ O2 nasal cannula as needed Supportive care Aggressive pulmonary toileting 05/17: Right pigtail chest tube catheter in IR 05/20: RIGHT CT found dislodged 05/20: CT chest -no PTX. Pneumomediastinum. Extensive right chest and neck with subcu air. 05/21: A.m. chest x-ray shows decrease in subcu emphysema Pain management Encourage out of bed PT and OT ordered Bowel regimen ASA for DVT prophylaxis [place], and will be following up with his own physicians RIGHT radius fx Orthopedics consulted and assisting in management and care 05/15: ORIF right radius fracture Supportive care Pain management Encourage out of bed PT and OT ordered NWB RUE Sling for comfort and support Bowel regimen SCDs and ASA for DVT prophylaxis Follow-up with orthopedics outpatient -patient states he will have an orthopedist in [place] follow him HTN. BPH. COPD vs Asthma. Depression. Encephalopathy. Liver cirrhosis awaiting transplant. Foot drop. Splenectomy. Vital signs every 4 hours and as needed Home medications resumed Clonidine 0.1mg BID. Lasix 20mg QD. Coreg 6.25mg BID. Lisinopril 20mg QD. Aldactone 50mg QD Home inhaler Liver enzymes WNL Patient will follow up with transplant physician in [place] - Time Spent with Patient Total time spent providing and/or coordinating discharge services: Greater than 30 minutes - Quality: VTE Deep Vein Thrombosis/Pulmonary Embolism Present on Admission: No Exam Vital signs: Vital Signs 05/21/18 16:00 05/21/18 19:00 05/21/18 23:53 Temperature 98.0 F 97.6 F 98.1 F Pulse Rate 61 64 62 Respiratory Rate 18 Blood Pressure 110/64 120/58 L 104/72 Pulse Oximetry 93 L 95 96 05/22/18 01:31 05/22/18 03:14 05/22/18 08:00 Temperature 97.3 F L 97.9 F Pulse Rate 56 L 68 Respiratory Rate 17 18 Blood Pressure 133/70 131/62 Pulse Oximetry 95 94 L 05/22/18 12:00 Temperature 97.7 F Pulse Rate 68 Respiratory Rate 18 Blood Pressure 134/68 Pulse Oximetry 94 L Intake & Output 05/21/18 05/22/18 05/22/18 18:59 06:59 18:59 Intake Total 420 / 420 Output Total 1400 / 1400 1175 / 1175 Balance -980 / -980 -1175 / -1175 Intake: Oral 420 / 420 Output: Urine 1400 / 1400 1175 / 1175 Other: Date of Last Bowel Movement 05/20/18 05/20/18 05/22/18 # Bowel Movements 1 Narrative: GENERAL: This is a 57-year-old male sitting up in bed. No distress noted. SKIN: Warm and dry. HEAD: Atraumatic. Normocephalic. EYES: PERRLA ENT: No nasal bleeding or discharge. Mucous membranes pink and moist. NECK: Trachea midline. No JVD. Subcu emphysema palpated over bilateral neck. CARDIOVASCULAR: Regular rate and rhythm. RESPIRATORY: No accessory muscle use. Lungs are clear to auscultation. Breath sounds equal bilaterally. No distress or dyspnea. Subcu emphysema palpated to right side of chest -decreased compared to yesterday GASTROINTESTINAL: BS + x 4 quads. Abdomen soft, non-tender, nondistended. MUSCULOSKELETAL: Extremities without cyanosis, or edema. RIGHT upper extremity splint in place and wrapped in Ortiz bandage. + peripheral pulses x 4 extremities. Warm with good capillary refill and sensation. MAEW. NEUROLOGICAL: Awake and alert. Normal speech and pattern. Results Procedures completed during hospitalization: . Labs on day of discharge: Labs from last 24 hours 05/14/18 12:36 Rout Panel Path Interp - Impressions ITS Impressions Abdomen/Pelvis CT 05/14/18 11:37 CONCLUSION: 1. No evidence of acute visceral injury. 2. Status post splenectomy. 3. Large oval low density fluid collection in the subcutaneous fat anterior to the left hip musculature which may represent a remote seroma. Cervical Spine CT 05/14/18 11:38 CONCLUSION: 1. Negative trauma CT Head CT 05/14/18 11:38 CONCLUSION: 1. Negative trauma head CT with no evidence of hemorrhage or fracture. 2. Mild streak and motion artifact. . Lumbar Spine CT 05/14/18 11:38 CONCLUSION: 1. Negative trauma CT with no acute fracture or malalignment. Thoracic Spine CT 05/14/18 11:38 CONCLUSION: 1. No acute fracture or malalignment in the thoracic spine. 2. Multiple subtle right rib fractures. 3. Small right effusion. Hand X-Ray 05/14/18 11:49 CONCLUSION: No additional fractures identified. Wrist X-Ray 05/15/18 00:00 CONCLUSION: Status post open rigid internal fixation. Chest Tube Insertion 05/17/18 00:00 CONCLUSION: 1. Uncomplicated chest tube placement as above. Chest CT 05/20/18 00:00 CONCLUSION: 1. Extensive subcutaneous and deep tissue emphysematous changes about the thorax with extension into the mediastinum. 2. Multiple right-sided rib fractures. 3. No pneumothorax. Chest X-Ray 05/22/18 06:00 CONCLUSION: Interval decrease in amount of subcutaneous emphysema on the right. Discharge Plan - Discharge Disposition Patient Disposition: 01 Discharge Home - Discharge Condition Condition: Stable - Discharge Order Discharge Orders: Discharge Order (Routine); Ordered 05/22/18 Ordered By: Lisa Self - Discharge Details Anticipated Discharge Date: 05/22/18 - Physicians Team Primary Care Provider: UNKNOWN, Attending Provider: Addi Gee Other Providers: North Chávez MD ; Jimbo Costa MD ; Jack Ray MD ; [employer] ; Addi Gee MD ; Lisa Self ARNP ; Jose C Palma MD ; Pearl Coyle MD ; Rosaura Walls ARNP ; Ubaldo Hill MD
== END 2018-05-22 15:26 | disposition home or self-care (01) ==
LOC: NEPI 11:32 → NEDA 13:57 → EDBD 13:57 → NEDA 16:43 → N06 16:50
PROVIDERS: ADMIT Surgery; ATTEND Surgery